=== PATIENT | female | born 1965 | race Caucasian/White ===

== ENCOUNTER 2019-04-04 11:29 | Outpatient (CLI) | payer OTHER, SELFPAY ==
--- NOTE | ~2019-04-04 | XR_ITS ---
XR lumbar spine 2-3V DATE: 04/04/2019 11:48 INDICATION: Chronic low back pain. No known injury. TECHNIQUE: AP, lateral, coned lateral lumbosacral views COMPARISON: 08/31/2014 lumbar spine FINDINGS: Diffuse osteopenia. No fracture or bone destruction is evident. The included lower thoracic and lumbar pedicles are intac t. Lumbar and lumbosacral spaces are well preserved. There is very slight degenerative spurring of L2 . Sacroiliac joints are normal. IMPRESSION: Diffuse osteopenia. Minimal degenerative change Reviewed, dictated and finalized at location B. ER SUPERVISOR
== END 2019-04-04 11:30 | disposition home or self-care (01) ==
PROVIDERS: PCP Family Medicine; Visit Provider Internal Medicine
DX: M06.09 Rheumatoid arthritis without rheumatoid factor, multiple sites (principal); M54.9 Dorsalgia, unspecified; F31.9 Bipolar disorder, unspecified
CPT/HCPCS: 72100

== ENCOUNTER 2022-04-23 13:37 | Outpatient (CLI) | payer OTHER, SELFPAY ==
--- NOTE | ~2022-04-23 | DEXA_ITS ---
Bone Density Report Name: CHRIS HORNER Age: 56 Sex: Female Ethnicity: White Date of : 1965 Indication: postmenopausal; screening for osteoporosis; hysterectomy; rheumatoid arthritis; Referring Provider: DEVORA, JULIÁN Alonzo Study: Bone densitometry was performed. Exam Date: April 23, 2022 Accession number: [id number] Bone Density: Region BMD T-score Z-score Classification AP Spine(L1-L4) 0.673 -3.4 -2.3 Osteoporosis Femoral Neck (Left) 0.611 -2.1 -1.1 Osteopenia Total Hip (Left) 0.717 -1.8 -1.2 Osteopenia Femoral Neck (Right) 0.597 -2.3 -1.2 Osteopenia Total Hip (Right) 0.740 -1.7 -1.0 Osteopenia Total Hip Mean 0.729 -1.8 -1.1 Osteopenia World Health Organization criteria for BMD impression classify patients as: Normal (T-score at or above -1.0), Osteopenia (T-score between -1.0 and -2.5), or Osteoporosis (T-score at or below -2.5). 10-year Fracture Risk: FRAX not reported because: Some T-score for Spine Total or Hip Total or Femoral Neck at or below -2.5 Treated for osteoporosis Clinical Information Provided by Patient: Has rheumatoid arthritis Is being treated for osteoporosis Has used the following medications: Prolia (i.e. denosumab), Vitamin D, Calcium Has the following medical conditions: Hysterectomy Patient maximum height was 67.5 Menopause Age: 41 Drinks caffeinated beverages Onset of menses at age 17 Number of children 2 Impression: The patient has osteoporosis, based on the Total Spine T-score. Discussion: It is important to ask patients whether they are taking their medications and to encourage continued and appropriate compliance with their osteoporosis therapies to reduce fracture risk. It is also important to review their risk factors and encourage appropriate calcium and vitamin D intakes, exercise, fall prevention and other lifestyle measures. Follow-Up: Consider a repeat BMD and Vertebral Fracture Assessment (VFA) exam in 2 years or sooner if medically necessary, to reassess this patient's status. Reported by: [facility] on 04/23/2022 2:18:00 PM. Reviewed, dictated and finalized at location AGerry AYALA
== END 2022-04-23 13:38 | disposition home or self-care (01) ==
PROVIDERS: PCP Family Medicine; Visit Provider Internal Medicine
DX: M81.0 Age-related osteoporosis without current pathological fracture (principal); M85.852 Other specified disorders of bone density and structure, left thigh; M85.851 Other specified disorders of bone density and structure, right thigh
CPT/HCPCS: 77080

== ENCOUNTER 2023-03-02 11:57 | Outpatient (CLI) | payer MEDICAID, SELFPAY ==
--- NOTE | ~2023-03-02 | MM_ITS ---
EXAMINATION: MM screening evelyn BI w luz HISTORY: Screening TECHNIQUE: Craniocaudal and mediolateral oblique 3-D tomosynthesis images were obtained and synthetic 2-D images were generated. CAD analysis was submitted and interpreted. COMPARISON: Comparison to multiple prior studies sequentially, with oldest reviewed study dated 09/08. BREAST PARENCHYMAL COMPOSITION: There are scattered areas of fibroglandular density. FINDINGS: There is no evidence of suspicious mass, calcification, or architectural distortion to sugg est malignancy in either breast. There has been no suspicious interval change. IMPRESSION: 1. No mammographic evidence of malignancy. 2. Recommend routine screening mammography in one year. BI-RADS Category 1: Negative Reviewed, dictated and finalized at location A. ORATE INTERN
== END 2023-03-02 11:58 | disposition home or self-care (01) ==
LOC: ANHIMG 12:02
PROVIDERS: PCP Family Medicine; Visit Provider Obstetrics & Gynecology
DX: Z12.31 Encounter for screening mammogram for malignant neoplasm of breast (principal)
CPT/HCPCS: 77063; 77067

== ENCOUNTER 2023-04-11 07:25 | Outpatient (CLI) | payer MEDICAID, SELFPAY ==
--- NOTE | ~2023-04-11 | MR_ITS ---
MRI of the right ankle Clinical history: Pain Technique: Coronal proton-density and proton-density fat-sat images, axial proton-density and proton- density fat-sat images, and sagittal proton-density and proton-density fat-sat images were acquired. Findings: There is high-grade tearing of the distal anteroinferior tibiofibular ligament. There is pr obable moderate grade partial tearing of the distal posterior inferior tibiofibular ligament. There i s high-grade tear of the anterior talofibular ligament. Posterior talofibular ligament and calcaneofi bular ligament appear intact. Deltoid ligament is intact. Medial flexor tendons, peroneus longus tendon, anterior extensor tendons, and Achilles tendon are int act. There is probable focal longitudinal split tear of the peroneus brevis tendon at the level of th e lateral malleolar tip. There is no osteochondral lesion of the talar dome. There is amorphous marrow edema of the posterior aspect of the distal tibia, with a vertically oriented nondisplaced posterior malleolus fracture pres ent (series 10 image 10). Small tibiotalar joint effusion present. Remaining bone marrow signals are unremarkable. Plantar fascia is intact. There is diffuse subcutaneous soft tissue edema about the ankle. Impression: Nondisplaced posterior malleolus fracture, as detailed above. High-grade tearing of the distal anterior inferior tibiofibular ligament and anterior talofibular lig ament. Moderate grade partial tearing of the distal posterior inferior tibiofibular ligament. Focal longitudinal split tear of the peroneus brevis tendon, as detailed above. Disuse subcutaneous soft tissue edema and small tibiotalar joint effusion. Reviewed, dictated and finalized at [facility]. [facility] DIRECT[facility] Impression: Nondisplaced posterior malleolus fracture, as detailed above. High-grade tearing of the distal anterior inferior tibiofibular ligament and an terior talofibular ligament. Moderate grade partial tearing of the distal poste rior inferior tibiofibular ligament. Focal longitudinal split tear of the peroneus brevis tendon, as detailed above. Disuse subcutaneous soft tissue edema and small tibiotalar joint effusion.
== END 2023-04-11 07:26 | disposition home or self-care (01) ==
LOC: CHSIMG 07:27
PROVIDERS: PCP Physician Assistant; Visit Provider Family Medicine
DX: M25.571 Pain in right ankle and joints of right foot (principal); S82.54XA Nondisplaced fracture of medial malleolus of right tibia, initial encounter for closed fracture; S93.431A Sprain of tibiofibular ligament of right ankle, initial encounter; M25.471 Effusion, right ankle
CPT/HCPCS: 73721

== ENCOUNTER 2024-05-18 15:03 | Outpatient (CLI) | payer OTHER, SELFPAY ==
--- NOTE | ~2024-05-18 | MM_ITS ---
EXAMINATION: MM screening evelyn BI w luz HISTORY: Screening TECHNIQUE: Craniocaudal and mediolateral oblique 3-D tomosynthesis images were obtained and synthetic 2-D images were generated. CAD analysis was submitted and interpreted. COMPARISON: Comparison to multiple prior studies sequentially, with oldest reviewed study dated 12/17. BREAST PARENCHYMAL COMPOSITION: Not dense: There are scattered areas of fibroglandular density. FINDINGS: There is no evidence of suspicious mass, calcification, or architectural distortion to sugg est malignancy in either breast. There has been no suspicious interval change. IMPRESSION: 1. No mammographic evidence of malignancy. 2. Recommend routine screening mammography in one year. BI-RADS Category 1: Negative Reviewed, dictated and finalized at location A.
--- OUTSIDE RECORDS SUMMARY | 2024-05-18 16:25 | XMS_ITS | Clinical Summary ---
Author Organization [facility] Address [address] [place] [place] [address] Care Team Providers Care Hat Finishing Materials Preparer Name Role Phone Jax Edgar MD Primary Care Provider Source Comments [facility],non-owned Affiliates and Associated Physician Practices is amultiple site organization consisting of ambulatory clinics and hospital sitesin [place], [place], [place] and [place]. This disclosure is being madepursuant to the Care Everywhere program and may not contain all information available regarding this patient. Last updated 17.[facility] Allergies Active Allergy Reactions Criticality Noted Date Comments Etanercept Swelling High 01/11/2018 Occurred 4 days after first enbrel dose. Occurred 4 days after first enbrel dose. Occurred 4 days after first enbrel dose. Lamotrigine Unknown 03/09/2018 [place] Anaphylaxis High 11/11/2016 Nitrofurantoin Rash Medium 03/09/2018 Penicillins Itching,Rash Medium 11/11/2016 Valproic Acid Anaphylaxis High 03/09/2018 Medications * Be aware that medications may not be up to date on this document. Alwaysverify current medications with the patient. Medication Sig Dispensed Refills Start Date End Date Status PROAIR HFA 108 (90 Base) MCG/ACT inhaler 10/10/2019 Active celecoxib (CELEBREX) 200 MG capsule 09/29/2019 Active folic acid (FOLVITE) 1 MG tablet Take 1 mg by mouth once daily 10/22/2017 Active gabapentin (NEURONTIN) 300 MG capsule Take 2 capsules by mouth once daily Active methotrexate 2.5 MG tablet Take 20 mg by mouth every 7 days 11/30/2017 Active metoprolol succinate XL 24hr (TOPROL XL) 100 MG tablet Take 1 tablet by mouth once daily 10/12/2017 Active OXcarbazepine (TRILEPTAL) 600 MG tablet Take 1/2 tablet in the morning and 2 at bedtime. 08/21/2017 Active sertraline (ZOLOFT) 100 MG tablet Take 1 tablet by mouth once daily 02/15/2018 Active sertraline (ZOLOFT) 50 MG tablet Take 1 tablet by mouth once daily 10/07/2017 Active traMADol (ULTRAM) 50 MG tablet Take 50 mg by mouth 01/27/2018 Activ e cephalexin (KEFLEX) 500 MG capsule 06/28/2020 Active doxycycline hyclate (VIBRAMYCIN) 100 MG capsule 07/04/2020 Active est estrogens-methyltest (ESTRATEST) 1.25-2.5 MG tablet 08/22/2020 Active fluticasone propionate (FLONASE) 50 MCG/ACT nasal spray 08/27/2020 Active leflunomide (ARAVA) 10 MG tablet 08/05/2020 Active golimumab (SIMPONI ARIA) 50 MG/4ML injection 2 mg/kg by Intravenous route once Active morphine IR (MSIR) 15 MG tablet Take 15 mg by mouth 2 times daily as needed Active Multiple Vitamins-Minerals (CENTRUM SILVER) TABS Take 1 tablet by mouth once daily Active predniSONE (DELTASONE) 2.5 MG tablet 12/19/2019 Active Active Problems Problem Noted Date Diagnosed Date RA (rheumatoid arthritis) 06/30/2022 Psoriatic arthritis 06/30/2022 Osteoporosis 04/30/2022 Senile osteoporosis 06/23/2019 Social History Tobacco Use Types Packs/Day Years Used Date Smoking Tobacco: Former Cigarettes 0.5 26.7 S tarted: 08/28/1997 Smokeless Tobacco: Never Alcohol Use Standard Drinks/Week Comments Never 0 (1 standard drink = 0.6 oz pur e alcohol) PHQ-2 Answer Date Recorded PHQ2 TOTAL SCORE 0 08/28/2020 Sex and Gender Information Value Date Recorded Sex Assigned at Not on file Gender Identity Not on file Sexual Orientation Not on file Last Filed Vital Signs Vital Sign Reading Time Taken Comments Blood Pressure 146/88 06/30/2022 12:46 PM CDT Pulse 65 06/30/2022 12:46 PM CDT Temperature 36.8 C (98.2 F) 06/30/2022 12:46 PM CDT Respiratory Rate 18 06/30/2022 12:46 PM CDT Oxygen Saturation 97% 06/30/2022 12:46 PM CDT Inhaled Oxygen Concentration - - Weight - - Height - - Body Mass Index - - Plan of Treatment Health Maintenance Due Date Last Done Comments COLOGUARD (AGES 45-75) - COLON CA SCREENING 1965 COLON MONITORING 1965 COLONOSCOPY - COLON CA SCREENING 1967 CT COLONOGRAPHY - COLON CA SCREENING 1965 Colorectal Cancer Screening 1965 FIT - COLON CA SCREENING 1965 FLEX SIG - COLON CA SCREENING 1965 LIPID TESTING 1965 MAMMOGRAM 1965 PAP SMEAR 1965 HIV SCREENING 07/13/1982 DTAP/TDAP/TD VACCINES (1 - Tdap) 07/13/1986 HEPATITIS B VACCINE (1 of 3 - 19+ 3-dose series) 07/13/1986 PNEUMOCOCCAL VACCINE 50+ (1 of 1 - PCV) 07/13/2017 ZOSTER VACCINE (1 of 2) 07/13/2017 COVID-19 VACCINE (1 - season) 2023 INFLUENZA VACCINE (#1) 2023 DEPRESSION SCREENING 02/17/2024 HEPATITIS C SCREENING Completed 07/30/2020 , 07/30/2020, 07/30/2020, Additional history exists HIB VACCINE Aged Out No longer eligi ble based on patient's age to complete this topic HPV VACCINE Aged Out No longer eligi ble based on patient's age to complete this topic MENINGOCOCCAL (Group B) VACCINE SHARED DECISION-MAKING Aged Out No longer eligible based on patient's age to complete this topic MENINGOCOCCAL GROUPS A/C/Y/W VACCINE Aged Out No longer eligible based on patient's age to complete this topic PNEUMOCOCCAL VACCINE Aged Out No long er eligible based on patient's age to complete this topic Care Teams Hat Finishing Materials Preparer Relationship Specialty Start Date End Date Jax Edgar MD [address] [place] [phone] PCP - General Family Medicine 11/11/16
--- OUTSIDE RECORDS SUMMARY | 2024-05-18 16:25 | XMS_ITS ---
Author Organization Unknown Address [address] [place] [phone] Phone Care Team Providers Care Motorcycle Repairer Name Role Phone CORI KOHLERSSEF Attending Unavailable VEL Morris Primary Unavailable Immunization Immunization Date Status Additional Notes Code Code System Influenza, split virus, quadrivalent, PF 12/02/2019 Completed 150 CVX Influenza, split virus, quadrivalent, PF 11/27/2020 Completed 150 CVX Influenza, split virus, quadrivalent, PF 12/03/2021 Completed 150 CVX Influenza, split virus, quadrivalent, preservative 11/17/2017 Completed 158 C VX Influenza, split virus, quadrivalent, preservative 11/23/2018 Completed 158 C VX Influenza, split virus, quadrivalent, preservative 01/26/2023 Completed 158 C VX COVID-19, mRNA, LNP-S, PF, 3 0 mcg/0.3 mL dose 04/06/2020 Completed 208 CVX COVID-19, mRNA, LNP-S, PF, 3 0 mcg/0.3 mL dose 04/27/2020 Completed 208 CVX COVID-19, mRNA, LNP-S, PF, 3 0 mcg/0.3 mL dose 10/08/2020 Completed 208 CVX COVID-19, mRNA, LNP-S, bivalent, PF, 30 mcg/0.3 mL dose 01/14/2022 Completed 300 CVX Results ANKLE 3V RIGHT - Completed: 06/17/2023 10:31 LOINC: EXAM DESCRIPTION: ? ? ANKLE 3V RIGHT REASON FOR STUDY: follow up fracture Duration: 3 months FINDINGS: Three views submitted without comparison. There is periosteal new bone formation involving the posterior distal tibia. Plantar heel spur and Achilles enthesophyte are present. The ankle joint space and mortise appear normal. Heterotopic ossification beneath the fibula is noted. There is soft tissue swelling about the ankle. There is mild midfoot osteoarthritis. IMPRESSION: ? ? Periosteal new bone formation involving the posterior distal tibia, which may represent a healing nondisplaced fracture. This can be further evaluated with CT if clinically indicated ? ? Right ankle soft tissue swelling. THIS IS AN ELECTRONICALLY VERIFIED FINAL REPORT 06/18/2023 3:18 PM - Electronically signed by Jac Stafford M.D. MF: [id number] Report ID: [id number] Reading Location: [id number] Social History Type Status Start Date End Date Code Code Syst em Sex Female Hospital Discharge Instructions Should you have any questions prior to discharge, please contact a member of your healthcare team. If you have left the hospital and have any questions, please contact your primary care physician. Reason For Referral No Data Found Plan of Treatment No Data Found Encounters Encounter Diagnosis Start Date Code Code Sys tem Disorder of soft tissue 06/17/2023 [id number] [facility] ED-CT Personal Care Team Section Performer Name Performer Role Active Date Inactive SEPIDEH Laguna PCP - Primary care physician 2023-04-15 Imaging Narrative Notes
--- OUTSIDE RECORDS SUMMARY | 2024-05-18 16:25 | XMS_ITS | Clinical Summary ---
Author Organization [place] [id number] [facility] Address [address] [place] [id number] Phone Care Team Providers Care Openstack Developer Name Role Phone Jax Edgar MD Primary Care Provider [phone] Ethan CLEARY MD, Silvestre Bauer Unavailable [phone] Fredy Dsouza MD Unavailable [phone] Allergies Active Allergy Reactions Criticality Noted Date Comments Etanercept Swollen tongue High 01/11/2018 Occurred 4 days after first enbrel dose. Lamotrigine [place] Anaphylaxis High 11/11/2016 Penicillin G Rash Medium 11/11/2016 Penicillins Medications OXcarbazepine (TRILEPTAL) 600 mg tablet Take 600 mg by mouth 2 (two) times a day. Active sertraline (ZOLOFT) 50 mg tablet Take 100 mg by mouth daily. Active folic acid (FOLVITE) 1 mg tablet Take 1 tablet (1 mg total) by mouth daily 90 tablet 3 05/24/2018 Active buPROPion (WELLBUTRIN) 100 mg tablet 07/21/2018 Activ e gabapentin (NEURONTIN) 800 mg tabletIndicatio ns:Neuropathic Pain Take 1 tablet (800 mg total) by mouth 3 (three) times a day 270 tablet 1 09/14/2018 Active methotrexate 2.5 mg tabletIndicatio ns:Rheumatoid Arthritis Take 8 tablets (20 mg total) by mouth every 7 days 96 tablet 1 09/14/2018 Active traMADol (ULTRAM) 50 mg tablet Take 1 tablet (50 mg total) by mouth every 8 (eight) hours as needed for pain 90 tablet 10/21/2018 Active XELJANZ XR 11 mg TAKE ONE TABLET BY MOUTH ONCE DAILY. MAY BE TAKEN WITH OR WITHOUT FOOD. SWALLOW TABLET WHOLE. DO NOT CRUSH, SPLIT OR CHEW. STORE AT ROOM TEM 30 tablet 2 12/28/2018 Active Active Problems Problem Noted Date Diagnosed Date Chronic pain of both knees 07/26/2018 Assessment & Plan (09/14/2018 12:01 PM CDT): Mild patellofemoral djd on xrays. Doing PT with improvement Assessment & Plan (07/26/2018 1:05 PM CDT): Pt reporting severe knee pain but no effusions or significant tenderness on exam. Will xray Sjogren's syndrome 07/26/2018 Assessment & Plan (09/14/2018 12:04 PM CDT): Pt reporting dry eyes, dry mouth. Can no longer wear contacts. Uses lubricating drops. F/u with eye doctor. Also having more dental issues, using mouth spray and seeing dentist. Neg serologies in 2017 but suspect this may be secondary sjogren's. Neg serologies in 08/04. Discussed trial of pilocarpine 5mg TID prn but she did not take it yet. Assessment & Plan (07/26/2018 1:06 PM CDT): Pt reporting dry eyes, dry mouth today. Can no longer wear contacts. Uses lubricating drops. F/u with eye doctor. Also having more dental issues, using mouth spray and seeing dentist. Neg serologies in 2017 but suspect this may be secondary sjogren's. Will recheck serologies today. Trial of pilocarpine 5mg TID prn. Dermatitis 05/24/2018 Assessment & Plan (05/24/2018 9:54 PM CDT): Flaking in skin and redness on face. Suspicious for psoriasis. Recommend derm opinion. She could have psoriatic arthritis Pain in the coccyx 03/15/2018 Assessment & Plan (03/15/2018 11:23 AM SIGNALER): Pt had a fall 2 weeks ago and still c/o tailbone pain. Will xray though discussed usually no tx is needed. Paresthesias 01/11/2018 Assessment & Plan (01/11/2018 12:21 PM SIGNALER): Paresthesias to R hand intermittently. Positive tinel's on exam. Suspect she may have mild CTS. If not improving with more RA tx then will send for nerve studies. Skin lump of arm, right 12/15/2017 Assessment & Plan (03/15/2018 11:26 AM SIGNALER): Pt has likely lipoma on R arm. Having excision on mar 24. She is just starting to feel better on humira and mtx and is nervous about stopping meds for minor procedure. Will have her take this week's dose of mtx, hold humira from now until after surgery. She has a post op visit 1 week after surgery. If all clear at that date, she may resume both meds. Assessment & Plan (12/15/2017 10:05 AM CDT): 1cm lump developed on the posterior lateral right shoulder. Mobile and tender some. Suspicious for lipoma. Patient has scheduled an appointment with general surgeon for further evaluation. Tongue swelling 12/14/2017 Assessment & Plan (12/15/2017 12:16 PM CDT): Major complaint today. Tongue swelling, which began last Thursday. Had first enbrel injection last Thursday. Patient also notes that she started a new coffee, which she did have 2 cups of on Thursday. Symptoms have gradually improved. Denies any difficulty swallowing or breathing issues. Does possess tongue swelling. For this reason, will have patient proceed with prednisone taper medication prescribed per PCP. Advised to go to the ER if symptoms worsen or develops difficulty with breathing. Will have patient stop enbrel at this time. Discuss alternative options at FU in 3 weeks. Neck pain 08/03/2017 Assessment & Plan (01/11/2018 11:47 AM SIGNALER): early degenerative change in the neck and also degenerative discs at multiple levels in the thoracic spine. Assessment & Plan (11/23/2017 4:41 PM CDT): Completed PT Assessment & Plan (10/23/2017 4:17 PM CDT): early degenerative change in the neck and also degenerative discs at multiple levels in the thoracic spine. Improving but not resolved. Doing additional PT Assessment & Plan (09/17/2017 5:18 PM CDT): early degenerative change in the neck and also degenerative discs at multiple levels in the thoracic spine. Improving but not resolved. Would benefit from additional PT visits Assessment & Plan (08/03/2017 11:33 AM CDT): Will xray and send for PT Acute right-sided thoracic back pain 08/03/2017 Assessment & Plan (11/23/2017 1:11 PM CDT): Continuing with PT Assessment & Plan (10/23/2017 4:17 PM CDT): Continuing with PT Assessment & Plan (09/17/2017 5:18 PM CDT): xrays showed early degenerative change in the neck and also degenerative discs at multiple levels in the thoracic spine. Has done PT and is better but not resolved. Will send for additional visits Assessment & Plan (08/03/2017 11:33 AM CDT): Will xray and send to PT Rheumatoid arthritis without elevated rheumatoid factor 11/25/2016 Overview (09/14/2018): Images from the original note were not included. vectra 37 08/03 R hand u/s 08/03 showed moderate inflammation with doppler but some improvement since previous study R hand 08/04: Neg AVISE 08/04 Started xeljanz early August Reaction to Enbrel, inadequate response to Humira Assessment & Plan (09/14/2018 12:01 PM CDT): Images from the original note were not included. cdai = 11, low-moderate On 20mg mtx weekly. Had tongue swelling 4 days after taking her first dose of Enbrel. Inadequate response to Humira. Recently changed to Xeljanz and has almost completed the first month. She feels some joint improvement and her cdai is better. May improve more over the next couple of months. R hand u/s in 08/03 shows moderate inflammation with doppler but some improvement since the previous study. vectra was 37 in 08/03 R hand u/s in 08/04: She also has flaking throughout her scalp that is suspicious for psoriasis. Recommend derm opinion. Labs today. F/u 6 weeks Assessment & Plan (07/26/2018 1:09 PM CDT): High cdai On 20mg mtx weekly. Had tongue swelling 4 days after taking her first dose of Enbrel. Has also been on weekly humira (changed from [id number]) since the last visit and does not report any improvement. R hand u/s in 08/03 shows moderate inflammation with doppler but some improvement since the previous study. vectra was 37 in 08/03 She also has flaking throughout her scalp that is suspicious for psoriasis. Recommend derm opinion. She also did not report much different with last IM steroid shot. Will repeat R hand u/s to assess disease activity. Will check benefits for xeljanz as she does not appear to be controlled on Humira. Also discussed Orencia. F/u 4-6 weeks. Assessment & Plan (05/24/2018 9:56 PM CDT): High cdai On 20mg mtx weekly. Had tongue swelling 4 days after taking her first dose of Enbrel. Tolerating Humira. R hand u/s in 08/03 shows moderate inflammation with doppler but some improvement since the previous study. vectra was 37 in 08/03 She recently had to hold her meds for lipoma excision and also had colonoscopy (following eating a non-gluten free diet). Her joints have been worse since then, despite restarting meds. She feels that Humira helps for about a week to 10 days then starts to wear off. She reports she had possible erosions and/or inflammation on her scopes and is seeing GI soon in f/u; there is a question about crohn's disease and gluten allergy. Due to increase in joint symptoms and Humira wearing off early will see if insurance will allow weekly humira. She also has flaking throughout her scalp that is suspicious for psoriasis. Recommend derm opinion. Due to burden of disease will give 100mg triamcinolone IM today. F/u 2 months. I gave her one extra sample of Humira to try to take the next couple of doses 1 week apart. Assessment & Plan (03/15/2018 11:28 AM SIGNALER): Moderate cdai. On 20mg mtx weekly. Had tongue swelling 4 days after taking her first dose of Enbrel. We have now switched to Humira and she has taken 3 doses without any major issues. R hand u/s in 08/03 shows moderate inflammation with doppler but some improvement since the previous study. vectra was 37 in 08/03 Will have a short interruption in meds due to lipoma excision (see below), but hopefully will see continued improvement with humira and mtx over the next several months. Labs today. F/u 2 months. Assessment & Plan (01/11/2018 12:20 PM SIGNALER): High cdai. On 20mg mtx weekly. Had tongue swelling 4 days after taking her first dose of Enbrel. Stopped med at that time and took a short prednisone taper. R hand u/s in 08/03 shows moderate inflammation with doppler but some improvement since the previous study. vectra was 37 in 08/03 Continues to have notable swelling and tenderness on exam today. Primary joint complaints today involve the hands/wrist, as well as the knees with morning stiffness for about an hour. Does not appear adequately controlled at this time. Will try to get approval for simponi or humira. Recommend teaching visit once she receives medicine to monitor for reactions. Labs next. F/u 6 weeks Assessment & Plan (12/15/2017 12:15 PM CDT): High CDAI. On 20mg mtx weekly. Received first Enbrel injection last Thursday. R hand u/s in 08/03 shows moderate inflammation with doppler but some improvement since the previous study. vectra was 37 in 08/03 Continues to have notable swelling and tenderness on exam today. Primary joint complaints today involve the hands/wrist, as well as the knees with morning stiffness for about an hour. Does not appear adequately controlled at this time. Had first enbrel injection last Thursday. As below, subsequent tongue swelling on Thursday. Difficult to say if this was due to the Enbrel. Patient also drank a new coffee on Thursday. Nonetheless, will stop Enbrel at this time. Fu 3 weeks. Sooner if needed. Discuss alternative treatment options at that time. Continue MTX. Assessment & Plan (11/23/2017 4:41 PM CDT): cdai = 21 On 20mg mtx weekly. Steroid shot given last visit was minimally helpful, though pt also came down with illness and had a major family stressor shortly thereafter. R hand u/s in 08/03 shows moderate inflammation with doppler but some improvement since the previous study. vectra was 37 in 08/03 Today she still reports having significant joint pain and difficulty doing her usual activities. Synovitis on exam so I suspect this is still due to her RA although we also discussed that fibromyalgia, OA may play a part in her symptoms as well. Discussed adding a biologic such as enbrel or humira and reviewed risks and benefits. Pt willing to try. Will check benefits for enbrel. Check quantiferon with labs. Will try another triamcinolone shot today. F/u 4-6 weeks. Assessment & Plan (10/23/2017 4:17 PM CDT): cdai = 39 On 20mg mtx weekly. She appears to be having a flare today. R hand u/s in 08/03 shows moderate inflammation with doppler but some improvement since the previous study. vectra was 37 in 08/03 Will give 100mg triamcinolone IM today to help with flare, check labs, and f/u 1 month. Consider adding more meds if not improving. Also discussed pain may be a component of fibromyalgia also. Assessment & Plan (09/17/2017 2:31 PM CDT): cdai = 9 Last visit increased to 20mg mtx weekly. R hand u/s shows moderate inflammation with doppler but some improvement since the previous study. vectra was 37 in 08/03 She is feeling better so will continue current regimen and monitor. Labs today. F/u 3 months Assessment & Plan (08/03/2017 12:28 PM CDT): More tender joints on exam today and synovitis present as well. On 15mg mtx weekly. Will increase to 20mg weekly. Will check u/s of R hand and vectra to help assess disease activity. F/u 1 month Assessment & Plan (05/06/2017 12:22 PM CDT): cdai is 13 but this may be elevated with fibromyalgia. Overall clinically is looking well so will check US to verify this impression after next visit. Assessment & Plan (02/04/2017 3:07 PM SIGNALER): Low disease activity with mtx 15mg weekly. Will con't with current regimen. Labs today. F/u 3 mos, sooner if needed. Assessment & Plan (12/31/2016 2:51 PM SIGNALER): High disease activity with mtx 10mg weekly. Increase to 15mg weekly. Labs today. Due to burden of disease, will administer 100mg IM triamcinolone today. Informed of se of dm2, htn, osteoporosis, avn. She would like to proceed with injection. F/u 1 month, sooner if needed. Pt in tears on exam. She is asking about pain medicines. Informed we can give her tramadol to take, but otherwise, other pain meds would have to be prescribed through pcp or pain mgmt. She would like to try tramadol, so will give 50mg tid prn pain. Assessment & Plan (11/25/2016 2:45 PM CDT): Inflamatory arthitis consistent with seronegative ra. Will start on mtx at this time. Discussed monitoring at this time. Pt having much pain so due to burden of disease will adminsiter triamcinolone 100 Im. Long-term use of high-risk medication 11/25/2016 Overview (07/26/2018): Hepatitis neg 11/02 Quant neg 12/03 cxr 06/04 (mild atelectasis in the lingula) Assessment & Plan (09/14/2018 12:03 PM CDT): Hepatitis neg 9/17 Quant neg 10/18 cxr 4/19 (mild atelectasis in the lingula) Assessment & Plan (07/26/2018 1:05 PM CDT): Hepatitis neg 9/17 Quant neg 10/18 cxr 4/19 (mild atelectasis in the lingula) Assessment & Plan (05/24/2018 11:10 AM CDT): Hepatitis neg 9/17 Quant neg 10/18 cxr neg 9/17. Assessment & Plan (03/15/2018 9:33 AM SIGNALER): Hepatitis neg 9/17 Quant neg 10/18 cxr neg 9/17. Assessment & Plan (01/11/2018 11:24 AM SIGNALER): Hepatitis neg 9/17 Quant neg 10/18 cxr neg 9/17. Assessment & Plan (12/15/2017 9:59 AM CDT): Hepatitis neg 9/17 Quant neg 10/18 cxr neg 9/17. Assessment & Plan (11/23/2017 1:11 PM CDT): Hepatitis neg 9/17 cxr neg 9/17. Assessment & Plan (10/23/2017 4:18 PM CDT): Hepatitis neg 9/17 cxr neg 9/17. Assessment & Plan (09/17/2017 2:19 PM CDT): Hepatitis neg 9/17 cxr neg 9/17. Assessment & Plan (08/03/2017 11:14 AM CDT): Hepatitis neg 9/17 cxr neg 9/17. Assessment & Plan (02/04/2017 1:00 PM SIGNALER): Hepatitis neg 9/17 cxr neg 9/17. Assessment & Plan (12/31/2016 1:49 PM SIGNALER): Hepatitis neg 11/02 cxr neg 11/02. Arthralgia 11/11/2016 Assessment & Plan (11/11/2016 1:40 PM CDT): Joint tenderness with questionable synovitis. Will check serologies, xrays and hand/wrist u/s to look for synovitis. Pt seen with Dr. Link. F/u 2 weeks, sooner if needed. Fatigue 11/11/2016 Assessment & Plan (11/11/2016 1:40 PM CDT): Will check hepatitis panel. Fibromyalgia 11/11/2016 Assessment & Plan (09/14/2018 12:03 PM CDT): On gabapentin 600mg TID. Has some improvement but will increase to 800mg TID. May also try taking 1 pill in the AM and 2 pills at night to see if it helps with fatigue. Discussed trying to have consistent sleep schedule and try for at least 8 hrs in bed. Her does shift work and they both have varying sleep schedules as a result. Discussed this predisposes people to sleep disorders/inadequate sleep and fatigue. May still use tramadol TID prn. Can also add tylenol with it. Assessment & Plan (07/26/2018 1:04 PM CDT): On gabapentin 400mg TID. Since she is reporting widespread joint pains that did not improve with last steroid shot I am wondering if more of her pain is related to fibromyalgia. Will increase gabapentin to 600mg TID. May still use tramadol TID prn. Can also add tylenol with it. Assessment & Plan (05/24/2018 9:55 PM CDT): On gabapentin 400mg TID. Stable at this time. Assessment & Plan (03/15/2018 9:33 AM SIGNALER): On gabapentin 400mg TID. Stable at this time. Assessment & Plan (01/11/2018 12:22 PM SIGNALER): On gabapentin 400mg TID. Stable at this time. Assessment & Plan (12/15/2017 9:59 AM CDT): On gabapentin 400mg TID. Stable at this time. Assessment & Plan (11/23/2017 1:10 PM CDT): On gabapentin 400mg TID Assessment & Plan (10/23/2017 4:17 PM CDT): On gabapentin 400mg TID Assessment & Plan (09/17/2017 2:16 PM CDT): Tried reducing gabapentin but was worse so is back on 300mg TID. Continue to exercise regularly Assessment & Plan (08/03/2017 11:32 AM CDT): Tried reducing gabapentin but was worse so is back on 300mg TID. Continue to exercise regularly Assessment & Plan (05/06/2017 12:47 PM CDT): Doing well so suggested she might try to decrease her gabapentin by 1 tab daily for a week until off. If worse then resume. Assessment & Plan (02/04/2017 3:10 PM SIGNALER): con't with current regimen for now. Assessment & Plan (12/31/2016 2:48 PM SIGNALER): Clincially evident. Cont lyrica for now. F/u 1month. Recommend talking to her psychiatrist about starting cymbalta or savella for more pain relief. Assessment & Plan (11/25/2016 2:48 PM CDT): Clincially evident. Cont lyrica for now. F/u 1month. Assessment & Plan (11/11/2016 1:42 PM CDT): Previously diagnosed and on Lyrica 300mg bid. Off cymbalta due to se of making her bipolar worse. Recommend doing Tristin Chi to help with sx's. Diarrhea 11/13/2011 Hematochezia 11/06/2011 Social History Tobacco Use Types Packs/Day Years Used Date Smoking Tobacco: Every Day Smokeless Tobacco: Never Alcohol Use Standard Drinks/Week Comments No 0 (1 standard drink = 0.6 oz pur e alcohol) Personal Safety Answer Date Recorded Getting School Help Needed Not on file 05/01 Comments Unknown Sex and Gender Information Value Date Recorded Sex Assigned at Not on file Legal Sex Female 7:51 AM SIGNALER Gender Identity Not on file Sexual Orientation Not on file Obstetrics History Last Filed Vital Signs Vital Sign Reading Time Taken Comments Blood Pressure 126/80 09/14/2018 10:49 AM CDT Pulse 80 09/14/2018 10:49 AM CDT Temperature - - Respiratory Rate - - Oxygen Saturation - - Inhaled Oxygen Concentration - - Weight 64.9 kg (143 lb) 09/14/2018 10:49 AM CDT Height 170.2 cm (5' 7 ) 05/24/2018 10:36 AM CDT Body Mass Index 22.4 05/24/2018 10:36 AM CDT Plan of Treatment Not on file Insurance [facility] H[facility]/PPO Address: [facility] [address] [place] [address] Care Teams Openstack Developer Relationship Specialty Start Date End Date Jax Edgar MD [address] [place] [id number] PCP - General Family Medicine 11/05/16 Silvestre Long III, MD [address] [facility] [address] [place] [address] Rheumatology 02/04/17 Fredy Dsouza MD [address] [place] [address] [place] [address] Referring Physician Family Medicine 05/24/18
--- OUTSIDE RECORDS SUMMARY | 2024-05-18 16:25 | XMS_ITS ---
Author Organization [facility] Address [address] [place] [address] Phone Care Team Providers Care Performance Architect Name Role Phone Unavailable Unavailable Unavailable Plan of Treatment No Plan of Treatment Recorded Assessments Includes: Assessments for all patient encounters No Assessments Recorded Medical Equipment - Implanted Devices Includes: Current and historical Devices No Medical Equipment Recorded Medications Administered Includes: Administered Medications in patient's chart No Administered Medications Recorded Results Includes: Results from 05/19/2023 through 05/18/2024 No Results Recorded For Specified Dates History of Present Illness History of Present Illness not supported for this document type No History of Present Illness Recorded Social History No Social History Recorded - Smoking Status Unknown Medical History Includes: Medical History in patient's chart No Medical History Recorded Family History Includes: Family History in patient's chart No Family History Recorded Review of Systems Review of Systems not supported for this document type No Review of Systems Recorded Mental Status No Mental Status Recorded Functional Status No Functional Status Recorded Physical Exam Physical Exam not supported for this document type No Physical Exam Recorded Clinical Notes Includes: Signed Clinical Notes starting from 03/07/2022 No Clinical Notes Recorded
--- OUTSIDE RECORDS SUMMARY | 2024-05-18 16:25 | XMS_ITS | Referral Summary ---
Author Organization [id number] Address [address] [place] [id number] Phone Care Team Providers Care Director Of Integrated Marketing Name Role Phone Jax Edgar MD Primary Care Provider [phone] Ethan CLEARY MD, Silvestre Bauer Unavailable [phone] Fredy Dsouza MD Unavailable [phone] Allergies Active Allergy Reactions Criticality Noted Date Comments Etanercept Swollen tongue High 01/11/2018 Occurred 4 days after first enbrel dose. Lamotrigine [place] Anaphylaxis High 11/11/2016 Penicillin G Rash Medium [...] 03/15/2018 Assessment & Plan (03/15/2018 11:23 AM WRAPPING MACHINE OPERATOR): Pt had a fall 2 weeks ago and still c/o tailbone pain. Will xray though discussed usually no tx is needed. Paresthesias 01/11/2018 Assessment & Plan (01/11/2018 12:21 PM WRAPPING MACHINE OPERATOR): Paresthesias to R hand intermittently. Positive tinel's on exam. Suspect she may have mild CTS. If not improving with more RA tx then will send for nerve studies. Skin lump of arm, right 12/15/2017 Assessment & Plan (03/15/2018 11:26 AM WRAPPING MACHINE OPERATOR): Pt has likely lipoma on R arm. [...] 08/03/2017 Assessment & Plan (01/11/2018 11:47 AM WRAPPING MACHINE OPERATOR): early degenerative change in the neck and [...] also been on weekly humira (changed from r0efuue) since the last visit and does not [...] apart. Assessment & Plan (03/15/2018 11:28 AM WRAPPING MACHINE OPERATOR): Moderate cdai. On 20mg mtx weekly. Had [...] months. Assessment & Plan (01/11/2018 12:20 PM WRAPPING MACHINE OPERATOR): High cdai. On 20mg mtx weekly. Had [...] visit. Assessment & Plan (02/04/2017 3:07 PM WRAPPING MACHINE OPERATOR): Low disease activity with mtx 15mg weekly. Will con't with current regimen. Labs today. F/u 3 mos, sooner if needed. Assessment & Plan (12/31/2016 2:51 PM WRAPPING MACHINE OPERATOR): High disease activity with mtx 10mg weekly. [...] 9/17. Assessment & Plan (03/15/2018 9:33 AM WRAPPING MACHINE OPERATOR): Hepatitis neg 9/17 Quant neg 10/18 cxr neg 9/17. Assessment & Plan (01/11/2018 11:24 AM WRAPPING MACHINE OPERATOR): Hepatitis neg 9/17 Quant neg 10/18 cxr [...] 9/17. Assessment & Plan (02/04/2017 1:00 PM WRAPPING MACHINE OPERATOR): Hepatitis neg 9/17 cxr neg 9/17. Assessment & Plan (12/31/2016 1:49 PM WRAPPING MACHINE OPERATOR): Hepatitis neg 11/02 cxr neg 11/02. Arthralgia [...] time. Assessment & Plan (03/15/2018 9:33 AM WRAPPING MACHINE OPERATOR): On gabapentin 400mg TID. Stable at this time. Assessment & Plan (01/11/2018 12:22 PM WRAPPING MACHINE OPERATOR): On gabapentin 400mg TID. Stable at this [...] resume. Assessment & Plan (02/04/2017 3:10 PM WRAPPING MACHINE OPERATOR): con't with current regimen for now. Assessment & Plan (12/31/2016 2:48 PM WRAPPING MACHINE OPERATOR): Clincially evident. Cont lyrica for now. F/u [...] on file Legal Sex Female 7:51 AM WRAPPING MACHINE OPERATOR Gender Identity Not on file Sexual Orientation [...] Plan of Treatment Not on file Insurance [facility] P[facility] Care Teams Director Of Integrated Marketing Relationship Specialty Start Date End Date Jax Edgar MD [address] [place] [id number] PCP - General Family Medicine 11/05/16 Silvestre Long III, MD [address] [address] Rheumatology 02/04/17 Fredy Dsouza MD [address] [place] [address] Referring Physician Family Medicine 05/24/18
--- OUTSIDE RECORDS SUMMARY | 2024-05-18 16:25 | XMS_ITS | Data Portability ---
Author Organization [facility], [address] [place] [address] ([place]) Address [address] [place] [address] Care Team Providers Care Endoscopy Registered Nurse Name Role Phone SEPIDEH CROWDER Primary Care Provider [phone] SEPIDEH CROWDER Referring Provider [phone] Assessment Encounter Date Assessment Date Assessment LastModified by Organization Details LastModified Time 07/30/2023 07/30/2023 IMPRESSION: Osteoarthritis of the knees. PLAN: 1. Bilateral knee arthrocentesis and intraarticular Euflexxa injection #2 today. The indications, risks, benefits and potential side effects of this knee injection procedure are discussed with the patient today in detail and informed, signed consent is obtained to proceed. With the patient lying in the supine position on the exam table and draped, landmarks are identified over the anterior superior lateral aspect of the knees and the injection sites are marked. The injection sites are cleaned with Betadine and while maintaining sterile technique, ethyl chloride spray is used to anesthetize the skin over both knees while in each instance, a sterile 25-gauge needle attached to a syringe containing 2 mL of 1% lidocaine is used to anesthetize a pathway from the skin to the intraarticular joint space. This needle is then withdrawn and while maintaining sterile technique, for each knee a sterile 18-gauge needle attached to a 30 mL syringe is introduced into the intra-articular joint space and aspiration performed. There was no aspirate obtained from either knee during these procedures today. While maintaining the position of the 18-gauge needle using a sterile pair of hemostats, the 30 mL syringe is unscrewed and the syringe containing the 2mL of Euflexxa is attached to the 18-gauge needle and the contents injected into the intraarticular space. Subsequently, the needle is withdrawn and the injection site areas are cleaned and covered with a sterile bandage. The patient tolerated the procedure well without bleeding or complications and is discharged home in stable condition. I performed this procedure today myself with the assistance of my nursing staff. Please see nursing notes regarding lot number and expiration date for today s Euflexxa doses. 2. Followup visit in 2 weeks for bilateral knee Euflexxa injection #3 and a brief followup visit to discuss her Actemra therapy. nv Not available 07/30/2023 18:08:26 08/13/2023 08/13/2023 IMPRESSION: 1. Seronegative RA. 2. Right shoulder impingement syndrome. 3. Osteoporosis. 4. Osteoarthritis. PLAN: 1. Bilateral knee arthrocentesis and intraarticular Euflexxa injection #3 today. The indications, risks, benefits and potential side effects of this knee injection procedure are discussed with the patient today in detail and informed, signed consent is obtained to proceed. With the patient lying in the supine position on the exam table and draped, landmarks are identified over the anterior superior lateral aspect of the knees and the injection sites are marked. The injection sites are cleaned with Betadine and while maintaining sterile technique, ethyl chloride spray is used to anesthetize the skin over both knees while in each instance, a sterile 25-gauge needle attached to a syringe containing 2 mL of 1% lidocaine is used to anesthetize a pathway from the skin to the intraarticular joint space. This needle is then withdrawn and while maintaining sterile technique, for each knee a sterile 18-gauge needle attached to a 30 mL syringe is introduced into the intra-articular joint space and aspiration performed. There was no aspirate obtained from either knee during these procedures today. While maintaining the position of the 18-gauge needle using a sterile pair of hemostats, the 30 mL syringe is unscrewed and the syringe containing the 2mL of Euflexxa is attached to the 18-gauge needle and the contents injected into the intraarticular space. Subsequently, the needle is withdrawn and the injection site areas are cleaned and covered with a sterile bandage. The patient tolerated the procedure well without bleeding or complications and is discharged home in stable condition. I performed this procedure today myself with the assistance of my nursing staff. Please see nursing notes regarding lot number and expiration date for today s Euflexxa doses. 2. Prolia 60 mg subcutaneously given x1 dose today. The indications, risks, benefits, and potential side effects of Prolia therapy were discussed today with the patient. The site of administration, name of the medication and the purpose for its administration all discussed with the patient today during a timeout prior to the procedure. With the patient seated at the end of the exam table in the upright position, the site of injection is marked and cleaned. The Prolia syringe is prepared with all air expelled from the injection syringe. After identifying and marking and cleaning the injection site, the Prolia syringe needle is introduced and the contents injected. The needle is subsequently removed and the area cleaned and covered with a sterile bandage. There was no blood loss or complications. Patient tolerated the procedure well and is discharged home in stable condition. Please see nursing notes regarding details of lot number and expiration date, as well as site of administration for today s Prolia dose. 3. Refill and continue current leflunomide dosing. 4. Increase ACTEMRA dosing to 162 mg subcutaneously once weekly. 5. Referral to Physical Therapy for the right shoulder twice weekly for 6 weeks. 6. Followup visit in 3-02/17 to 4 months with labs. nv Not available 08/16/2023 08:52:56 10/14/2023 10/14/2023 IMPRESSION: 1. Seronegative RA, currently worse. 2. Fibromyalgia syndrome, currently active with increased stress levels. 3. Osteoarthritis. 4. Osteoporosis, currently tolerating Prolia therapy well. PLAN: 1. Discontinue Actemra. 2. RINVOQ 15 mg orally daily. We will see prior authorization. She has failed multiple previous conventional DMARD agents and biologic agents. I discussed with her the indications, risks, benefits and potential side effects as well as mechanism of action of RINVOQ therapy today in detail. We discussed the risk of cytopenias, elevated LFTs and hyperlipidemia, as well as risk of infections, specifically shingles. We also discussed the risk of MACE events and VTE events. 3. Recommend prior to starting RINVOQ therapy she obtain her Shingrix vaccine #1. She may then within 2 weeks start her RINVOQ therapy. Patient is to avoid starting her RINVOQ until 1 week after her last Actemra infusion. All of these instructions are written out for her today in detail. 4. Labs today, including a CBC, CMP and acute phase reactants and vitamin D level. We will also obtain a magnesium and phosphorus level. 5. IM Depo-Medrol 100 mg x1 today. 6. Followup visit in November 2023 in [place] as scheduled. adina Not available 10/14/2023 20:31:38 11/26/2023 11/26/2023 IMPRESSION: 1. Seronegative RA, currently doing quite well on RINVOQ therapy. 2. Osteoarthritis of the knees. 3. Fibromyalgia syndrome. 4. Osteoporosis, currently tolerating Prolia antiresorptive therapy well. PLAN: 1. Discontinue leflunomide. 2. DMARD labs now by order given to the patient. 3. Continue current RINVOQ and Prolia therapy. 4. Continue current daily calcium and vitamin D intake. 5. We will also obtain serum magnesium, phosphorus and vitamin D levels at this time. 6. Followup visit in 4 months. adina Not available 11/26/2023 21:54:58 04/14/2024 04/14/2024 IMPRESSION: 1. Seronegative RA, currently flaring. 2. Osteoporosis, currently tolerating Prolia antiresorptive therapy. 3. Fibromyalgia syndrome. 4. Osteoarthritis. PLAN: 1. Prolia 60 mg given subcutaneously x1 dose today. The indications, risks, benefits, and potential side effects of Prolia therapy were discussed today with the patient. The site of administration, name of the medication and the purpose for its administration all discussed with the patient today during a timeout prior to the procedure. With the patient seated at the end of the exam table in the upright position, the site of injection is marked and cleaned. The Prolia syringe is prepared with all air expelled from the injection syringe. After identifying and marking and cleaning the injection site, the Prolia syringe needle is introduced and the contents injected. The needle is subsequently removed and the area cleaned and covered with a sterile bandage. There was no blood loss or complications. Patient tolerated the procedure well and is discharged home in stable condition. Please see nursing notes regarding details of lot number and expiration date, as well as site of administration for today s Prolia dose. 2. IM Depo Medrol 120 mg x1. 3. Currently her Arsenio is in prior authorization. I inquired today as to other medications she has taken. She has been on methotrexate, ACTEMRA and the RINVOQ, which itself caused a headache. We will check with pre-certs to see where we are at with the Arsenio prior authorization though I believe we are waiting on insurance response. She inquired about infusible therapy, whether or not there was a different infusible that might be easier to get approved. We will investigate this further. 4. Followup visit in 3 months for recheck. adina Not available 04/14/2024 15:33:18 Plan of Treatment Reminders Order Date Submit Date Provider Last Modified By Organization Details Last Modified Time Details Appointments Establish ed Patient 15.EST 2024 10:30A M Dr. Milton Snow Not available Not available Not available Lab None recorded. Referral None recorded. Procedures None recorded. Surgeries None recorded. Imaging None recorded. Medication Orders Depo-Medr ol 80 mg/mL suspensio n for injection 2024 025 [email or web address] [facility], [address] [facility] [address], [place], [address], 04/14/2024 17:19:17 Prolia 60 mg/mL subcutane ous syringe 2024 025 [email or web address] [facility], [address] [facility] [address], [place], [address], 04/14/2024 17:19:17 Depo-Medr ol 80 mg/mL suspensio n for injection 2023 024 [email or web address] [facility], [address] [facility] [address], [place], [address], 04/14/2024 11:17:08 leflunomi de 20 mg tablet 2023 024 [email or web address] [facility], [address] [facility] [address], [place], [address], 11/26/2023 15:13:20 Prolia 60 mg/mL subcutane ous syringe 2023 024 [email or web address] [facility], [address] [facility] [address], [place], [address], 08/13/2023 21:48:29 Euflexxa 10 mg/mL (mw 2.4-3.6 million) intra-art icular syringe 2023 024 [email or web address] [facility], [address] [facility] [address], [place], [address], 04/14/2024 11:17:12 Euflexxa 10 mg/mL (mw 2.4-3.6 million) intra-art icular syringe 2023 024 [email or web address] [facility], [address] [facility] [address], [place], [address], 04/14/2024 11:17:12 Euflexxa 10 mg/mL (mw 2.4-3.6 million) intra-art icular syringe 2023 024 [email or web address] [facility], [address] [facility] [address], [place], [address], 04/14/2024 11:17:12 Euflexxa 10 mg/mL (mw 2.4-3.6 million) intra-art icular syringe 2023 024 [email or web address] [facility], [address] [facility] [address], [place], [id number], 04/14/2024 11:17:12 Patient TargetsNo targets recorded. Patient Instructions Encounter Date Encounter Id Patient Instructions Last Modified By Organization Details Last Modified Time 08/13/2023 [id number] physical therapy * - Twice weekly for 6 weeks. R shoulder. Decrease pain, increase range of motion, increase stability. [email or web address] Not available 11/11/2023 11:46:48 Reason for Referral None Reported. Results Created Date Observation Date Name Description Value Unit Range Abnormal Flag Note LastModifiedBy Organization Detail LastModifiedTime 07/17/19 24 07/17/2023 CBC CBC Not Available [facility] [address], [place], [address], 07/17/2023 16:05:12 07/17/19 24 07/17/2023 CBC WBC 4.8 K/uL 3.8-11 .2 Not Available [facility] [address] [place] [address], [id number], 07/17/2023 16:05:12 07/17/19 24 07/17/2023 CBC RBC 4.28 M/uL 3.92-5 .10 Not Available [facility] [address] [place] [address], [id number], 07/17/2023 16:05:12 07/17/19 24 07/17/2023 CBC HGB 13.1 g/dL 11.8-1 5.3 Not Available [facility] [address] [place] [address], [id number], 07/17/2023 16:05:12 07/17/19 24 07/17/2023 CBC HCT 38.6 % 36.5-4 4.8 Not Available [facility] [address] [place] [address], [id number], 07/17/2023 16:05:12 07/17/19 24 07/17/2023 CBC MCV 90.2 fL 80.0-9 9.0 Not Available [facility] [address] [place] [address], [id number], 07/17/2023 16:05:12 07/17/19 24 07/17/2023 CBC MCH 30.6 pg 25.5-3 3.6 Not Available [facility] [address] [place] [address], [id number], 07/17/2023 16:05:12 07/17/19 24 07/17/2023 CBC MCHC 33.9 g/dL 32.0-3 6.0 Not Available [facility] [address] [place] [address], [id number], 07/17/2023 16:05:12 07/17/19 24 07/17/2023 CBC RDW-SD 41.1 fL 35.1 - 46.3 Not Available [facility] [address] [place] [address], [id number], 07/17/2023 16:05:12 07/17/19 24 07/17/2023 CBC plt 255 K/uL 130-40 0 Not Available [facility] [address] [place] [address], [id number], 07/17/2023 16:05:12 07/17/19 24 07/17/2023 CBC MPV 9.7 fL 9.3-12 .8 Not Available [facility] [address] [place] [address], [id number], 07/17/2023 16:05:12 07/17/19 24 07/17/2023 vitam in D, 25-hy droxy , total , serum vitamin D 25-hydroxy totl 59.0 NG/mL 30.0-8 0.0 Less than 20 ng/mL Defic iency 20-29 ng/mL Insuf ficie ncy 30-80 ng/mL Optim al Great er than 80 ng/mL Possi ble toxic ity Not Available [facility] [address] [place] [address], [id number], 07/17/2023 16:08:01 07/17/19 24 07/17/2023 CMP, serum or plasm a comp. met. panel Not Available [facility] [address] [place] [address], [id number], 07/17/2023 16:25:07 07/17/19 24 07/17/2023 CMP, serum or plasm a sodium 133 mmol/ L 136-14 6 low Not Available [facility] [address] [place] [address], 1985[address], 07/17/2023 16:25:07 07/17/19 24 07/17/2023 CMP, serum or plasm a potassium 5.1 mmol/ L 3.5-5. 1 Not Available [facility] [address] [place] [address], 10[address], 07/17/2023 16:25:07 07/17/19 24 07/17/2023 CMP, serum or plasm a chloride 100 mmol/ L 98-110 Not Available [facility] [address] [place] [address], [address], 07/17/2023 16:25:07 07/17/19 24 07/17/2023 CMP, serum or plasm a CO2 27 mEq/L 20-32 Not Available [facility] [address] [place] [address], [id number], 07/17/2023 16:25:07 07/17/19 24 07/17/2023 CMP, serum or plasm a anion gap 11 mmol/ L 10-22 Not Available [facility] [address] [place] [address], [id number], 07/17/2023 16:25:07 07/17/19 24 07/17/2023 CMP, serum or plasm a glucose 103 mg/dL 70-100 high Not Available [facility] [address] [place] [address], 69[address], 07/17/2023 16:25:07 07/17/19 24 07/17/2023 CMP, serum or plasm a calcium 9.7 mg/dL 8.4-10 .4 Not Available [facility] [address] [place] [address], [id number], 07/17/2023 16:25:07 07/17/19 24 07/17/2023 CMP, serum or plasm a total protein 6.9 g/dL 6.4-8. 3 Not Available [facility] [address] [place] [address], [id number], 07/17/2023 16:25:07 07/17/19 24 07/17/2023 CMP, serum or plasm a albumin 4.6 g/dL 3.5-5. 3 Not Available [facility] [address] [place] [address], 02609, 07/17/2023 16:25:07 07/17/19 24 07/17/2023 CMP, serum or plasm a ALP 140 U/L 44 - 127 high Not Available [facility] [address] [place] [address], [id number], 07/17/2023 16:25:07 07/17/19 24 07/17/2023 CMP, serum or plasm a AST (SGOT) 23 U/L 10-40 Not Available [facility] [address] [place] [address], 778[address], 07/17/2023 16:25:07 07/17/19 24 07/17/2023 CMP, serum or plasm a total bilirubin 0.3 mg/dL 0.2-1. 0 Not Available [facility] [address] [place] [address], [id number], 07/17/2023 16:25:07 07/17/19 24 07/17/2023 CMP, serum or plasm a ALT (SGPT) 25 U/L 8-35 Not Available [facility] [address] [place] [address], 6[address], 07/17/2023 16:25:07 07/17/19 24 07/17/2023 CMP, serum or plasm a BUN 15 mg/dL 7-21 Not Available [facility] [address] [place] [address], [id number], 07/17/2023 16:25:07 07/17/19 24 07/17/2023 CMP, serum or plasm a creatinine 0.7 mg/dL 0.7-1. 3 Not Available [facility] [address] [place] [address], [id number], 07/17/2023 16:25:07 07/17/19 24 07/17/2023 CMP, serum or plasm a GFR(non-afri can icelandic) 92 Not Available [facility] [address] [place] [address], 236[address], 07/17/2023 16:25:07 07/17/19 24 07/17/2023 CMP, serum or plasm a GFR() 111 ([employer] SILVANA KIDNE Y DISEA SE HAS A GFR LESS THAN 60 ML/NH N/1.7 3 MM FOR A PERIO D OF THREE MONTH S OR MORE. ) Not Available [facility] [address] [place] [address], [id number], 07/17/2023 16:25:07 07/17/19 24 07/17/2023 C-regino ctive prote in, quant itati ve, serum or plasm a CRP Not Available [facility] [address] [place] [address], [id number], 07/17/2023 16:25:09 07/17/19 24 07/17/2023 C-regino ctive prote in, quant itati ve, serum or plasm a CRP <0.4 mg/dL <0.4-0 .5 Not Available [facility] [address] [place] [address], 37[address], 07/17/2023 16:25:09 07/17/19 24 07/17/2023 ESR (eryt hrocy te sedim entat ion rate) , blood sed rate 4 mm/HR 0 - 30 Not Available [facility] [address] [place] [address], [id number], 07/17/2023 17:46:41 07/17/19 24 07/17/2023 CMP, serum or plasm a comp. met. panel Not Available [facility] [address] [place] [address], [id number], 07/17/2023 16:09:55 07/17/19 24 07/17/2023 CMP, serum or plasm a sodium PENDIN G Not Available [facility] [address] [place] [address], 330[address], 07/17/2023 16:09:55 07/17/19 24 07/17/2023 CMP, serum or plasm a potassium 5.1 mmol/ L 3.5-5. 1 Not Available [facility] [address] [place] [address], 51068, 07/17/2023 16:09:55 07/17/19 24 07/17/2023 CMP, serum or plasm a chloride 100 mmol/ L 98-110 Not Available [facility] [address] [place] [address], 84637, 07/17/2023 16:09:55 07/17/19 24 07/17/2023 CMP, serum or plasm a CO2 27 mEq/L 20-32 Not Available [facility] [address] [place] [address], 46973, 07/17/2023 16:09:55 07/17/19 24 07/17/2023 CMP, serum or plasm a anion gap PENDIN G Not Available [facility] [address] [place] [address], [id number], 07/17/2023 16:09:55 07/17/19 24 07/17/2023 CMP, serum or plasm a glucose 103 mg/dL 70-100 high Not Available [facility] [address] [place] [address], 21308, 07/17/2023 16:09:55 07/17/19 24 07/17/2023 CMP, serum or plasm a calcium 9.7 mg/dL 8.4-10 .4 Not Available [facility] [address] [place] [address], [id number], 07/17/2023 16:09:55 07/17/19 24 07/17/2023 CMP, serum or plasm a total protein 6.9 g/dL 6.4-8. 3 Not Available [facility] [address] [place] [address], [id number], 07/17/2023 16:09:55 07/17/19 24 07/17/2023 CMP, serum or plasm a albumin 4.6 g/dL 3.5-5. 3 Not Available [facility] [address] [place] [address], [id number], 07/17/2023 16:09:55 07/17/19 24 07/17/2023 CMP, serum or plasm a ALP 140 U/L 44 - 127 high Not Available [facility] [address] [place] [address], [id number], 07/17/2023 16:09:55 07/17/19 24 07/17/2023 CMP, serum or plasm a AST (SGOT) 23 U/L 10-40 Not Available [facility] [address] [place] [address], [id number], 07/17/2023 16:09:55 07/17/19 24 07/17/2023 CMP, serum or plasm a total bilirubin 0.3 mg/dL 0.2-1. 0 Not Available [facility] [address] [place] [address], 71231, 07/17/2023 16:09:55 07/17/19 24 07/17/2023 CMP, serum or plasm a ALT (SGPT) 25 U/L 8-35 Not Available [facility] [address] [place] [address], [id number], 07/17/2023 16:09:55 07/17/19 24 07/17/2023 CMP, serum or plasm a BUN 15 mg/dL 7-21 Not Available [facility] [address] [place] [address], [id number], 07/17/2023 16:09:55 07/17/19 24 07/17/2023 CMP, serum or plasm a creatinine 0.7 mg/dL 0.7-1. 3 Not Available [facility] [address] [place] [address], 83319, 07/17/2023 16:09:55 07/17/19 24 07/17/2023 CMP, serum or plasm a GFR(non-afri can icelandic) 92 Not Available [facility] [address] [place] [address], 61591, 07/17/2023 16:09:55 07/17/19 24 07/17/2023 CMP, serum or plasm a GFR() 111 ([employer] SILVANA KIDNE Y DISEA SE HAS A GFR LESS THAN 60 ML/NH N/1.7 3 MM FOR A PERIO D OF THREE MONTH S OR MORE. ) Not Available [facility] [address] [place] [address], 09435, 07/17/2023 16:09:55 10/14/19 24 10/14/2023 CBC CBC Not Available [facility] [address] [place] [address], 07794, 10/14/2023 15:41:56 10/14/19 24 10/14/2023 CBC WBC 4.7 K/uL 3.8-11 .2 Not Available [facility] [address] [place] [address], 94039, 10/14/2023 15:41:56 10/14/19 24 10/14/2023 CBC RBC 4.22 M/uL 3.92-5 .10 Not Available [facility] [address] [place] [address], [id number], 10/14/2023 15:41:56 10/14/19 24 10/14/2023 CBC HGB 12.9 g/dL 11.8-1 5.3 Not Available [facility] [address] [place] [address], 36078, 10/14/2023 15:41:56 10/14/19 24 10/14/2023 CBC HCT 37.3 % 36.5-4 4.8 Not Available [facility] [address] [place] [address], [id number], 10/14/2023 15:41:56 10/14/19 24 10/14/2023 CBC MCV 88.4 fL 80.0-9 9.0 Not Available [facility] [address] [place] [address], 44466, 10/14/2023 15:41:56 10/14/19 24 10/14/2023 CBC MCH 30.6 pg 25.5-3 3.6 Not Available [facility] [address] [place] [address], 65907, 10/14/2023 15:41:56 10/14/19 24 10/14/2023 CBC MCHC 34.6 g/dL 32.0-3 6.0 Not Available [facility] [address] [place] [address], 47783, 10/14/2023 15:41:56 10/14/19 24 10/14/2023 CBC RDW-SD 42.6 fL 35.1 - 46.3 Not Available [facility] [address] [place] [address], [id number], 10/14/2023 15:41:56 10/14/19 24 10/14/2023 CBC plt 270 K/uL 130-40 0 Not Available [facility] [address] [place] [address], 86944, 10/14/2023 15:41:56 10/14/19 24 10/14/2023 CBC MPV 9.6 fL 9.3-12 .8 Not Available [facility] [address] [place] [address], 11651, 10/14/2023 15:41:56 10/14/19 24 10/14/2023 CMP, serum or plasm a comp. met. panel Not Available [facility] [address] [place] [address], [id number], 10/14/2023 15:58:54 10/14/19 24 10/14/2023 CMP, serum or plasm a sodium 131 mmol/ L 136-14 6 low Not Available [facility] [address] [place] [address], 41565, 10/14/2023 15:58:54 10/14/19 24 10/14/2023 CMP, serum or plasm a potassium 4.4 mmol/ L 3.5-5. 1 Not Available [facility] [address] [place] [address], 41503, 10/14/2023 15:58:54 10/14/19 24 10/14/2023 CMP, serum or plasm a chloride 100 mmol/ L 98-110 Not Available [facility] [address] [place] [address], [id number], 10/14/2023 15:58:54 10/14/19 24 10/14/2023 CMP, serum or plasm a CO2 29 mEq/L 20-32 Not Available [facility] [address] [place] [address], [id number], 10/14/2023 15:58:54 10/14/19 24 10/14/2023 CMP, serum or plasm a anion gap 6 mmol/ L 10-22 low Not Available [facility] [address] [place] [address], 7[address], 10/14/2023 15:58:54 10/14/1910/14/2023 CMP, serum or plasm a glucose 103 mg/dL 70-100 high Not Available [facility] [address] [place] [address], 93074, 10/14/2023 15:58:54 10/14/19 24 10/14/2023 CMP, serum or plasm a calcium 9.5 mg/dL 8.4-10 .4 Not Available [facility] [address] [place] [address], 26[address], 10/14/2023 15:58:54 10/14/19 24 10/14/2023 CMP, serum or plasm a total protein 6.6 g/dL 6.4-8. 3 Not Available [facility] [address] [place] [address], [address], 10/14/2023 15:58:54 10/14/19 24 10/14/2023 CMP, serum or plasm a albumin 4.1 g/dL 3.5-5. 3 Not Available [facility] [address] [place] [address], [address], 10/14/2023 15:58:54 10/14/19 24 10/14/2023 CMP, serum or plasm a ALP 85 U/L 44 - 127 Not Available [facility] [address] [place] [address], 60[address], 10/14/2023 15:58:54 10/14/19 24 10/14/2023 CMP, serum or plasm a AST (SGOT) 22 U/L 10-40 Not Available [facility] [address] [place] [address], 80706, 10/14/2023 15:58:54 10/14/19 24 10/14/2023 CMP, serum or plasm a total bilirubin 0.3 mg/dL 0.2-1. 0 Not Available [facility] [address] [place] [address], 40541, 10/14/2023 15:58:54 10/14/19 24 10/14/2023 CMP, serum or plasm a ALT (SGPT) 23 U/L 8-35 Not Available [facility] [address] [place] [address], 58208, 10/14/2023 15:58:54 10/14/19 24 10/14/2023 CMP, serum or plasm a BUN 16 mg/dL 7-21 Not Available [facility] [address] [place] [address], 90805, 10/14/2023 15:58:54 10/14/19 24 10/14/2023 CMP, serum or plasm a creatinine 0.8 mg/dL 0.7-1. 3 Not Available [facility] [address] [place] [address], 18[address], 10/14/2023 15:58:54 10/14/19 24 10/14/2023 CMP, serum or plasm a GFR(non-afri can icelandic) 79 Not Available [facility] [address] [place] [address], 69279, 10/14/2023 15:58:54 10/14/19 24 10/14/2023 CMP, serum or plasm a GFR() 95 (VOCATIONAL N[employer]SING INSTRUCTOR SILVANA KIDNE Y DISEA SE HAS A GFR LESS THAN 60 ML/NH N/1.7 3 MM FOR A PERIO D OF THREE MONTH S OR MORE. ) Not Available [facility] [address] [place] [address], [address]32, 10/14/2023 15:58:54 10/14/19 24 10/14/2023 C-regino ctive prote in, quant itati ve, serum or plasm a CRP Not Available [facility] [address] [place] [address], 89634, 10/14/2023 15:58:56 10/14/19 24 10/14/2023 C-regino ctive prote in, quant itati ve, serum or plasm a CRP <0.4 mg/dL <0.4-0 .5 Not Available [facility] [address] [place] [address], 83738, 10/14/2023 15:58:56 10/14/19 24 10/14/2023 ESR (eryt hrocy te sedim entat ion rate) , blood sed rate 3 mm/HR 0 - 30 Not Available [facility] [address] [place] [address], 02142, 10/14/2023 16:07:39 12/15/19 24 04/15/2023 imagi ng/di agnos tic resul t No observ ation record ed. [email or web address] Not Available 21:30:19 12/15/19 24 05/13/2023 imagi ng/di agnos tic resul t No observ ation record ed. [email or web address] Not Available 21:30:21 12/15/19 24 06/17/2023 imagi ng/di agnos tic resul t No observ ation record ed. [email or web address] Not Available 21:30:23 Result Notes None recorded. Problems Name Problem SNOMED Code Status Onset Date Resolution Date Notes Provider Name and Address Organization Details Recorded Time Rheumatoid arthritis 83923867 Active 2023 Kelly Crissypat [facility] 5 16:34:16 Seronegativ e rheumatoid arthritis 194971159 Active 2023 Joyce Mercer [facility] 5 11:51:41 Bilateral osteoarthri tis of knees 9952583320068 07 Active 2023 Ladan Leigh [facility] 4 10:01:50 Psoriasis 0887293 Active 2023 Ladan Leigh [facility] 4 10:01:57 Fibromyalgi a 684809634 Active 2023 Ladan Leigh [facility] 4 10:02:06 High risk drug monitoring Active 2023 Ladan Leigh [facility] 4 10:02:16 Closed fracture distal tibia 378700062 Active 2023 Ladan Leigh [facility] 4 10:08:22 Vitamin D deficiency 32861606 Active 2023 Ladan Leigh [facility] 4 10:08:34 Chronic pain syndrome 017747327 Active 2023 Ladan Leigh [facility] 4 10:08:49 Osteoporosi s 86009471 Active 2023 Kelly Dao [facility] 5 16:40:54 Hypervitami nosis D 82282080 Active 2023 Holley Case [facility] 4 11:47:33 Impingement syndrome of right shoulder region 9988635382224 02 Active 2023 Milton Snow MD [address] [place] [address], [phone], [facility] 4 14:38:16 Problem Notes None recorded. Procedures Surgical History Date Name Laterality Status Provider Name and Address Organization Details Recorded Time 019 excision of lipoma completed [facility] 05/27/2023 10:11:12 018 hysterectomy completed [facility] 05/27/2023 10:10:25 018 sacrocolpopexy completed [facility] 05/27/2023 10:11:51 hemorrhoidectomy completed [facility] 05/27/2023 10:10:09 insertion of single incision mid-urethral mini-sling completed [facility] 05/27/2023 10:11:28 ligation of bilateral fallopian tubes completed [facility] 05/27/2023 10:11:59 denervation of paracervical uterine nerves completed [facility] 05/27/2023 10:12:13 Colonoscopy with biopsy completed Not Available [facility] 07/15/2023 19:32:25 Total hysterectomy completed Not Available Health Note 07/15/2023 19:32:25 Imaging Results Imaging Date Name Status LastModified by Organiz ation Details LastModified Time 04/15/2023 imaging/diag nostic result completed Information not available 12/15/2023 21:30:19 05/13/2023 imaging/diag nostic result completed Information not available 12/15/2023 21:30:21 06/17/2023 imaging/diag nostic result completed Information not available 12/15/2023 21:30:23 Procedure Notes None recorded. Medical Equipment None Reported. Allergies Allergen ID Allergen Name Allergen Category Reaction Reaction Severity Criticality Documentation Date Start Date Code Code System Note Provider Name and Address Organization Details Recorded Time 0989232 divalproe x sodium medicatio n anaphylax is Not available high 05/27/2023 71201 6 RxNorm Not Available Not Available Not Available 3907220 lithium Not available anaphylax is Not available high 05/27/2023 6448 RxNorm Not Available Not Available Not Available 5768038 Macrobid medicatio n rash Not available Not available 05/27/2023 76502 1 RxNorm Not Available Not Available Not Available 3756100 Lamictal medicatio n other Not available Not available 05/27/2023 93024 2 RxNorm Not Available Not Available Not Available 3928092 lamotrigi ne medicatio n Not available Not available Not available 11/25/20232023 98502 RxNorm Not Available Not Available Not Available 645428 Product containin g penicilli n (product) medicatio n hives Not available Not available 03/16/20232006 22002 8001 SNOMED Not Available Not Available Not Available Medications Name Sig Start Date Stop Date Status Note LastModified by Organization Details LastModified Time sulfasala zine 500 mg tablet take 1 tablet twice a day for 7 days, then take 2 tabs every am and 1 every pm for 7 days, then 2 tabs bid daily 2024 active Not Available Not Available Not Avai lable esterifie d estrogens -methylte stosteron e 0.625 mg-1.25 mg tablet 07/16 completed Not Available Not Available Not Available famotidin e 40 mg tablet take 1 tablet daily active Not Available Not Available No t Available Medrol (Silvestre) 4 mg tablets in a dose pack Take 1 dose pk by oral route. 04/14 completed Not Available Not Available Not Available metoprolo l succinate ER 100 mg tablet,ex tended release 24 hr TAKE 1 TABLET DAILY active Not Available Not Available No t Available sertralin e 100 mg tablet take 1 tablet daily active 1.5 tablets daily Not Available Not Available Not Available prednison e 5 mg tablet 07/16 completed Not Available Not Available Not Available leflunomi de 20 mg tablet Take 1 tablet every day by oral route for 30 days. 11/25 completed simrani aldo at 11/26/23 appt. Not Available Not Available Not Available tramadol 50 mg tablet prn active Not Available Not Available Not Available Medrol 4 mg tablet TAKE 6 TABLETS ONCE DAILY FOR 2 DAYS, THEN TAKE 5 TABLETS ONCE DAILY FOR 4 DAYS, THEN TAKE 4 TABLETS ONCE DAILY FOR 4 DAYS, THEN TAKE 3 TABLETS ONCE DAILY FOR 4 DAYS, THEN TAKE 2 TABLETS ONCE DAILY FOR 4 DAYS, THEN TAKE 1 TABLET DAILY FOR 4 DAYS. OFF. 04/14 completed Not Available Not Available Not Available Depo-Medr ol 80 mg/mL suspensio n for injection Take 120 mg by injectio n route. 2024 active Not Available Not Available Not Avai lable bupropion HCl 100 mg tablet 07/16 completed Not Available Not Available Not Available propranol ol 10 mg tablet take 1 tablet daily active Not Available Not Available No t Available lorazepam 0.5 mg tablet 05/26 completed Not Available Not Available Not Available buspirone 30 mg tablet active Not Available Not Available Not Available bupropion HCl 75 mg tablet active Not Available Not Available Not Available oxcarbaze pine 600 mg tablet take 1 tablet twice daily active 1.5 tablets daily Not Available Not Available Not Available morphine ER 15 mg tablet,ex tended release 05/26 completed Not Available Not Available Not Available estradiol 0.5 mg tablet active Not Available Not Available Not Available ergocalci ferol (vitamin D2) 1,250 mcg (50,000 unit) capsule TAKE 1 CAPSULE WEEKLY 04/14 completed Not Available Not Available Not Available albuterol sulfate HFA 90 mcg/actua tion aerosol inhaler 10/13 completed Not Available Not Available Not Available Premarin 0.3 mg tablet TAKE 1 TABLET BY MOUTH EVERY DAY active Not Available Not Available No t Available mirtazapi ne 7.5 mg tablet 05/26 completed Not Available Not Available Not Available Euflexxa 10 mg/mL (mw 2.4-3.6 million) intra-art icular syringe INJECT 2 ML INTRA-AR TICULARL Y ONCE WEEKLY FOR 3 WEEKS 04/14 completed Not Available Not Available Not Available Vitamin D3 50 mcg (2,000 unit) tablet Take 1 tablet every day by oral route. active Not Available Not Available No t Available Actemra 200 mg/10 mL (20 mg/mL) intraveno us solution INFUSE 4 MG/KG OVER 60 MINUTE(S ) BY INTRAVEN OUS ROUTE EVERY 4 WEEKS 06/07 completed repalced with Rinvoq Not Available Not Available Not Available Prolia 60 mg/mL subcutane ous syringe INJECT 1 MILLILIT ER (60 MG) BY SUBCUTAN EOUS ROUTE EVERY 6 MONTHS 2024 active Not Available Not Available Not Avai lable Xeljanz XR 11 mg tablet,ex tended release Take 1 tablet every day by oral route. 04/14 completed never started due to insuranc e issues/c ost Not Available Not Available Not Available Actemra ACTPen 162 mg/0.9 mL subcutane ous pen injector Inject 0.9 mL every week by subcutan eous route. 10/13 completed Not Available Not Available Not Available Rinvoq 15 mg tablet,ex tended release TAKE 1 TABLET BY MOUTH DAILY 03/04 completed Not Available Not Available Not Available Vitals Date Recorded Body height Provider Name an d Address Organization Details Last Updated DateTime 07/30/2023 170.18 cm [facility] 07/30/2023 13:58:36 Date Recorded Body height Body mass index (BMI) Body weight Heart rate Oxygen saturation Oxygen saturation in Arterial blood by Pulse oximetry Pain severity - 0-10 verbal numeric rating [Score] - Reported Systolic blood pressure Diastolic blood pressure Provider Name and Address Organization Details Last Updated DateTime 170.18 cm 26.2 kg/m2 52425.9 3 g 66 /min 95 % 95 % 4 128 mm[Hg] 86 mm[Hg] [facility] 4 14:08:13 Date Recorded Body height Body mass index (BMI) Body weight Heart rate Oxygen saturation Oxygen saturation in Arterial blood by Pulse oximetry Pain severity - 0-10 verbal numeric rating [Score] - Reported Provider Name and Address Organization Details Last Updated DateTime 4 170.18 cm 25.9 kg/m2 85855.5 4 g 73 /min 97 % 97 % 4 Josefina Rivers [facility] 4 11:57:59 Date Recorded Body height Body mass index (BMI) Body weight Heart rate Oxygen saturation Oxygen saturation in Arterial blood by Pulse oximetry Pain severity - 0-10 verbal numeric rating [Score] - Reported Systolic blood pressure Diastolic blood pressure Provider Name and Address Organization Details Last Updated DateTime 4 170.18 cm 25.6 kg/m2 51826.9 9 g 70 /min 96 % 96 % 0 126 mm[Hg] 78 mm[Hg] Josefina Rivers [facility] 4 14:22:54 Date Recorded Body height Heart rate Oxygen saturation Oxygen saturation in Arterial blood by Pulse oximetry Systolic blood pressure Diastolic blood pressure Provider Name and Address Organization Details Last Updated DateTime 5 170.18 cm 76 /min 99 % 99 % 118 mm[Hg] 78 mm[Hg] Malcolm Carvajalw [facility] 5 11:16:46 Social History Question Answer Notes LastModified by Organizat ion Details LastModified Time Tobacco Smoking Status Former Smoker Josefina Rivers [facility] 11/26/2023 14:24:13 Do You Have An Advance Directive? No [email or web address] Information not available 08/06/2023 What Is Your Level Of Alcohol Consumption? None [email or web address] Information not available 08/06/2023 What Is Your Level Of Caffeine Consumption? Moderate [email or web address] Information not available 08/06/2023 Are You Currently Employed? 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 Less Than 1 Time Per Week [email or web address] Information not available 08/06/2023 When Did You Quit Smoking? 2022 [email or web address] Information not available 10/14/2023 Do You Have A Medical Power Of Barrel Filler Head? No [email or web address] Information not available 08/06/2023 What Was The Date Of Your Most Recent Tobacco Screening? 08/13/2023 [email or web address] Information not available 08/06/2023 What Is Your Relationship Status? [email or web address] Information not available 08/06/2023 Do You Use Any Illicit Or Recreational Drugs? No [email or web address] Information not available 08/06/2023 Sex: Unknown Functional Status Question Answer Note LastModified by Organizat ion Details LastModified Time What is your exercise level? Occasional [email or web address] Information not available 08/06/2023 Mental Status None recorded. Family History Relationship Description Onset Age of this Age Resolved Age Notes LastModified by Organization Details LastModified Time Mother Hypertensive disorder Not available 2023 10:09:36 Mother Malignant tumor of breast [email or web address] Not available 2023 10:09:49 Mother Arthritis [email or web address] Not available 07/15/2023 19:32:24 Mother Osteoporosis [email or web address] Not availa ble 07/15/2023 19:32:24 Brother Arthritis [email or web address] Not availabl e 07/15/2023 19:32:24 Maternal Grandmother Osteoporosis [email or web address] Not available 0 07/15/2023 19:32:24 Maternal Grandfather Arthritis [email or web address] Not available 07/18 15:03:42 Maternal Grandfather Osteoporosis [email or web address] Not available 0 08/06/2023 15:03:43 Unspecified Relation Seizure disorder [email or web address] Not available 2023 15:03:43 Medical History Condition Response Diabetes N Anxiety Disorder Y Bleeding Disorder N Attention-deficit Hyperactivity Disorder N High Blood Pressure Y Arthritis Y Hyperlipidemia N Cancer N Thyroid Problems N Stroke N Asthma N COPD N Depression Y Anemia N Seizures N Heart Disease N Fibromyalgia Y Osteoporosis Y Kidney Disease N Gynecological HistoryNo gynecological history recorded. Obstetrics History GPAL:G 0 P 0 0 0 0 Immunizations Vaccine Type Date Status Note Provider Nam e and Address Organization Details Recorded Time Influenza, split virus, quadrivalent, preservative 8 completed Ladan Leigh [facility] 07/17/2023 11:54:37 Influenza, split virus, quadrivalent, preservative 9 completed Ladan Reese [facility] 07/17/2023 11:54:37 Influenza, split virus, quadrivalent, preservative 3 completed Ladan Reese [facility] 07/17/2023 11:54:37 COVID-19, mRNA, LNP-S, PF, 30 mcg/0.3 mL dose 1 completed Ladanchary Leigh [facility] 07/17/2023 11:54:37 COVID-19, mRNA, LNP-S, PF, 30 mcg/0.3 mL dose 1 completed Ladanchary Leigh [facility] 07/17/2023 11:54:37 COVID-19, mRNA, LNP-S, PF, 30 mcg/0.3 mL dose 1 completed Ladanchary Leigh [facility] 07/17/2023 11:54:37 COVID-19, mRNA, LNP-S, bivalent, PF, 30 mcg/0.3 mL dose 2 completed [facility] 07/17/2023 11:54:37 Influenza, split virus, quadrivalent, PF 1 completed Ladan [facility] 07/17/2023 11:54:37 Influenza, split virus, quadrivalent, PF 0 completed Ladan [facility] 07/17/2023 11:54:37 Influenza, split virus, quadrivalent, PF 2 [facility] 07/17/2023 11:54:37 Past Encounters Encounter ID Performer Location Encounter Start Date Encounter Closed Date Diagnosis/Indication Diagnosis SNOMED-CT Code Diagnosis ICD10 Code Diagnosis Note [id number] Milton Snow MD [address] [place] [address] [facility] [address] [place] [address],[address] [place] [phone] 07/17/2023 11:33:30 07/17/2023 18:15:19 Seropositive rheumatoid arthritis 508428914 M05.9 Bilateral osteoarthritis of knees 3942951316 31201 M17.0 Vitamin D deficiency 347 98466 E55.9 Seropositi ve rheumatoid arthritis of multiple joints 2619427920 3962534 M05.89 [id number] Milton Snow MD [facility] ([place]) [address] [place], [place] [address] [place] [address] 07/30/2023 13:55:45 08/03/2023 23:49:37 Bilateral osteoarthritis of knees 3182770228 69680 M17.0 Rheumatoid arthritis 698 97988 M06.9 [id number] Milton Snow MD [facility] ([place]) [facility] [place] [address] 08/13/2023 13:51:42 08/18/2023 09:44:16 Bilateral osteoarthritis of knees 2917554714 23295 M17.0 Osteoporosis 99803706 M8 1.0 Impingemen t syndrome of right shoulder region 5357502880 04260 M75.41 Seropositi ve rheumatoid arthritis 991762958 M05.9 Rheumatoid arthritis of multiple joints 278843094 M06.89 Long-term current use of immunosuppressive drug 283053318 Z79.594 [id number] Milton Snow MD [address] [place] [address] [facility] ([place]) [address] [place] [phone] 10/14/2023 11:38:35 10/14/2023 18:35:07 Seronegative rheumatoid arthritis 956921204 M06.00 Fibromyalgia 201149013 M 79.7 Bilateral osteoarthritis of knees 0976524461 27471 M17.0 Rheumatoid arthritis of multiple joints 445063714 M06.89 Additional diagnosis detail: Other specified rheumatoid arthritis, multiple sites Long-term current use of drug therapy 806468458 Z79.899 Additional diagnosis detail: Other usp (current) drug therapy [id number] Milton Snow MD [facility] ([place]) [address] [place], [place] [address] [place] [address] 11/26/2023 13:57:50 11/30/2023 10:38:46 Seronegative rheumatoid arthritis 136819939 M06.00 Osteoporosis 15016868 M8 1.0 Fibromyalgia 079657253 M 79.7 Bilateral osteoarthritis of knees 7107390083 40091 M17.0 Vitamin D deficiency 347 03735 E55.9 [id number] Milton Snow MD [facility] ([place] [address] [facility] [address] 04/14/2024 11:00:26 04/15/2024 10:54:16 Osteoporosis 64798429 M81.0 Seronegati ve rheumatoid arthritis 056651448 M06.00 Fibromyalgia 950095005 M 79.7 Hypervitaminosis D 20349 000 E67.3 Health Concerns Section Related Observation LastModified by Organization Detai ls LastModified Time None Recorded Concern Status LastModified by Organization Details LastModified Time None Recorded Advance Directives Directive N: Payers Encounter Date Sequence Insurance Name Policy Number Policy Alonzo Covered Member ID Alonzo Member ID Guarantor Name 07/30/2023 1 [facility] (MEDICARE REPLACEMENT /ADVANTAGE - HMO) Celina Hoffmancker [id number] Celina Cathy [place] 08/13/2023 1 [facility] (MEDICARE REPLACEMENT /ADVANTAGE - HMO) Celina Cathy [place] [id number] Celina A [place] 10/14/2023 1 [facility] [id number] Adrian Ordaz [id number] Celina A [place] 11/26/2023 1 [facility] [id number] Adrian Orlin [id number] Celina A [place] 04/14/2024 1 [facility] [id number] Adrian Orlin [id number] Celina Ordaz Notes Date Note Type Note Provider Name and Address Organization Details Recorded Time text/html The patient is a 58-year-old female with osteoarthritis of the knees, who is here today for bilateral knee Euflexxa injection #2.nv Milton Snow MD [facility] [address], [address], [facility] 08/04/2023 23:11:36 4 text/html The patient is a 58-year-old female, here for bilateral knee Euflexxa injections #3, as well as a followup visit. She is also on Prolia for her osteoarthritis and continues on ACTEMRA and leflunomide therapy for the management of her seronegative RA. She also has osteoarthritis. She reports today a flare over the past 2-3 weeks of right shoulder impingement symptoms. She has been doing a lot of gardening lately and thinks she simply over did it with her shoulder. She has difficulties lying on her shoulder at night. The pain is described as a pinching toothache type discomfort that radiates from the deltoid area towards the elbow. She brings it on with her right arm if she reaches overhead or forward, as well as engages in any lifting, pushing, or pulling activities. She rates her pain a 5-6/10 on a scale. Overall her Euflexxa shots have been helping somewhat with her knee pain and stiffness. She does keep very active on her feet. She denies any falls or fractures since last visit. She has been tolerating her Prolia therapy well without postdosing dental issues or bone pain. She tolerates her ACTEMRA therapy and has now completed her first month of treatments. The takes the injection every other week currently and continues on her leflunomide therapy in combination with the ACTEMRA. She does find that the subcutaneous injections of ACTEMRA do not seem to be quite as effective as the infusion monthly was in the past. Currently her morning stiffness is lasting up to an hour in duration.vickie Burgess a 58 year oldfemalepresenting for care. Milton Snow MD [facility] [place] [address], [phone], [facility] 08/18/2023 11:32:38 4 text/html The patient is a 58-year-old female with seronegative RA, psoriasis, fibromyalgia syndrome and osteoarthritis, who is here today for a followup visit. She continues on Actemra in combination with her leflunomide, but reports the Actemra really does not seem to be helping. We had actually switched her from every other week to once weekly dosing and even with the dose augmentation, she continues to experience 1 hour or morning stiffness and pain and swelling involving the hands at the MCP and PIP joints, as well as wrists, elbows, knees, ankles and MTP joints of the feet. She rates her pain a 4-6/10 on a scale. She has not encountered any rash. No Raynaud s symptoms, fevers, unexplained weight loss, aphthous ulcers, inflammatory eye symptoms, neck swelling, lymph node swelling, cough, pleurisy, shortness of breath, chest pain or palpitations, GERD, melena or hematochezia, diarrhea or constipation. She has no history of myocardial infarctions, DVT or PE. She has had chickenpox in the past, but has not had shingles. She has not received the Shingrix vaccine. She does report tolerating her Prolia therapy for her osteoporosis. She has had no falls or fractures since last visit.adina Snow MD [address] [place] [address], [phone], [facility] 10/15/2023 08:52:28 4 text/html The patient is a 58-year-old female with seronegative RA, fibromyalgia syndrome, osteoarthritis, and osteoporosis, who is here today for a followup visit. She did start the RINVOQ therapy and reports within 2 weeks her joints felt tremendously better. Essentially, her joint pain disappeared and aside from some twinges of pain occasionally in her osteoarthritic knees, she is doing quite well. She has had minimal morning stiffness, generally resolving within 5-10 minutes once she is up and physically active. She tolerates the RINVOQ without postdosing headache, nausea, vomiting, stomatitis, alopecia, cough, pleurisy, shortness of breath, chest pain or palpitations, GERD, melena or hematochezia, diarrhea or constipation, anorexia or early satiety. She has had no myocardial infarctions or blood clots since last visit. She denies any outbreaks of shingles. Her appetite is normal, energy level is normal. No Raynaud s symptoms.adina Celina Burgess a 58 year oldfemalepresenting for care. Milton Snow MD [facility] [place] [address], [phone], [facility] 11/28/2023 12:58:29 text/html The patient is a 58-year-old female with a history of seronegative RA, osteoarthritis, fibromyalgia syndrome and osteoporosis, who is here today for a followup visit and for her next Prolia injection. She reports tolerating the Prolia therapy well. No postdosing bone pain or dental issues. She does see a dentist every 6 months. She reports today a flare of pain and stiffness throughout her hands, wrists, knees and ankles. It is both in her joints and the surrounding muscles. She did require a Medrol taper in February 2024 for a similar flare. She reports the steroids do help, but we are currently trying to get her on steroid sparing therapy with Xeljanz. She previously was taking RINVOQ, but developed a headache. She reports the RINVOQ helped tremendously, however. Currently her pain is a 7/10 on a scale with 1-2 hours of morning stiffness. No Raynaud s symptoms, fever or chills, aphthous ulcers, cough, pleurisy, shortness of breath, chest pain or palpitations, GERD, melena or hematochezia, diarrhea or constipation, anorexia or early satiety, dysuria or gross hematuria or bleeding from the nares or gums. She reports that since getting off the RINVOQ her headaches have stopped. She does keep as active as she can on her feet. She has had no falls or fractures since last visit.adina Snow MD [facility] [place] [address], [phone], [facility] 04/14/2024 21:58:26 OBGyn Episode No OBEpisode recorded.
--- OUTSIDE RECORDS SUMMARY | 2024-05-18 16:26 | XMS_ITS ---
Care Plan - [facility] Created on: May 18, 2024 CHRIS HORNER : 1965 Sex: Female Author Organization [facility] Address [address] [place] [address] Phone Care Team Providers Care Market Development Trainer Name Role Phone Unavailable Unavailable Unavailable
--- OUTSIDE RECORDS SUMMARY | 2024-05-18 16:26 | XMS_ITS ---
Author Organization Unknown Address [address] [place] [phone] Phone Care Team Providers Care Coal Grader Name Role Phone CORI GANDARA Attending Unavailable VEL Morris Primary Unavailable Immunization [...] CVX Results ANKLE 3V RIGHT - Completed: 04/15/2023 09:52 LOINC: EXAM DESCRIPTION: ? ? ANKLE 3V RIGHT REASON FOR STUDY: Pain with torn tendons. Fall Duration: 2-16-24 FINDINGS: Three views of the right ankle are submitted for interpretation without comparison. Moderate ankle soft tissue swelling is greatest laterally. Chronic heterotopic ossification is present at the distal tip of the fibula. No acute fracture. Small plantar calcaneal spur. Ankle mortise is intact. Joint spaces are normal. IMPRESSION: ? ? Moderate lateral predominant ankle soft tissue swelling. ? ? No radiographically evident acute fracture. Chronic heterotopic ossification at the distal fibula. THIS IS AN ELECTRONICALLY VERIFIED FINAL REPORT 04/16/2023 8:21 AM - Electronically signed by Myron Woodard M.D. TH: Report ID: [id number] Reading Location: [id number] Social History Type Status Start Date End [...] Diagnosis Start Date Code Code Sys tem Arthralgia of the ankle and/or foot 04/15/2023 84175 [id number] SNOMED-CT Personal Care Team Section Performer Name Performer Role Active Date Inactive SEPIDEH Laguna PCP - Primary care physician 2023-04-15 Imaging Narrative Notes
--- OUTSIDE RECORDS SUMMARY | 2024-05-18 16:26 | XMS_ITS | Clinical Summary ---
Author Organization [facility] Address [facility] [place] [address] Care Team Providers Care Route Sales Delivery Driver Name Role Phone Darrin Loja MD Primary Care Provider [phone] Allergies Active Allergy Reactions Criticality Noted Date Comments Valproic Acid Anaphylaxis High 03/09/2018 Etanercept Swelling High 01/11/2018 Occurred 4 days after first enbrel dose. Occurred 4 days after first enbrel dose. Lamotrigine Unknown 03/09/2018 [place] Anaphylaxis High 03/09/2018 Nitrofurantoin Rash Low 03/09/2018 Penicillin G Rash Medium 11/11/2016 Penicillins Hives,Rash Medium 03/09/2018 Medications metoprolol succinate 100 MG 24 hr tablet Take 1.5 tablets (150 mg total) by mouth daily. 10/12/2017 Active sertraline 50 MG tablet Take 1 tablet (50 mg total) by mouth daily. 10/07/2017 Active TRILEPTAL 600 MG Tab tablet Take 1/2 tablet in the morning and 2 at bedtime. 08/21/2017 Active sertraline 100 MG tablet Take 1 tablet (100 mg total) by mouth daily. 02/15/2018 Active traMADol 50 MG tablet Take 1 tablet (50 mg total) by mouth every 8 (eight) hours as needed. 01/27/2018 Active leflunomide 10 MG Tab Take 1 tablet (10 mg total) by mouth daily. Active Multiple Vitamins-Minera [place] (CENTRUM SILVER) Tab Take 1 tablet by mouth daily. Active morphine CR (MS CONTIN) 15 MG tablet 05/29/2022 Active folic acid (FOLVITE) 1 MG tablet Take 1 tablet (1 mg total) by mouth daily. Active propranolol (INDERAL) 10 MG tablet Take 1 tablet (10 mg total) by mouth 3 (three) times daily as needed (anxiety). Active LORazepam (ATIVAN) 0.5 MG tablet Take 1 tablet (0.5 mg total) by mouth 2 (two) times daily as needed for Anxiety. Active Active Problems Problem Noted Date Diagnosed Date Seronegative rheumatoid arth ritis of multiple sites ([facility]) 01/28/2023 Right upper quadrant abdominal pain 07/04/2020 Hematuria 07/03/2020 Encounter for postoperative care 03/29/2018 Angioedema 03/09/2018 Rheumatoid arthritis without elevated rheumatoid factor ([facility]) 03/09/2018 Overview (03/10/2018): Overview: vectra 37 08/03 R hand u/s 08/03 showed moderate inflammation with doppler but some improvement since previous study Last Assessment & Plan: High cdai. On 20mg mtx weekly. Had [...] for reactions. Labs next. F/u 6 weeks Paresthesias 01/11/2018 Overview (03/10/2018): Last Assessment & Plan: Paresthesias to R hand intermittently. Positive tinel's on exam. Suspect she may have mild CTS. If not improving with more RA tx then will send for nerve studies. Tongue swelling 12/14/2017 Overview (03/10/2018): Last Assessment & Plan: Major complaint today. Tongue swelling, which began [...] alternative options at FU in 3 weeks. Acute right-sided thoracic back pain 08/03/2017 Overview (03/10/2018): Last Assessment & Plan: Continuing with PT Neck pain 08/03/2017 Overview (03/10/2018): Last Assessment & Plan: On gabapentin 400mg TID. Stable at this time. Last Assessment & Plan: early degenerative change in the neck and also degenerative discs at multiple levels in the thoracic spine. Long-term use of high-risk medication 11/25/2016 Overview (03/10/2018): Last Assessment & Plan: Hepatitis neg 11/02 Quant neg 12/03 cxr neg 11/02. Fatigue 11/11/2016 Overview (03/10/2018): Last Assessment & Plan: Will check hepatitis panel. Pain in joint 11/11/2016 Overview (03/10/2018): Last Assessment & Plan: Joint tenderness with questionable synovitis. Will check serologies, xrays and hand/wrist u/s to look for synovitis. Pt seen with Dr. Link. F/u 2 weeks, sooner if needed. Diarrhea 11/13/2011 Hematochezia 11/06/2011 Anxiety Bipolar disorder ([facility]) Depression Esophageal reflux Hypertension Hyperlipidemia Osteopenia Tobacco use disorder Resolved Problems Problem Noted Date Diagnosed Date Resolved Date Lipoma of right shoulder 03/09/201812/2018 Skin lump of arm, right 12/15/201703/19 Overview (03/10/2018): Last Assessment & Plan: 1cm lump developed on the posterior lateral right shoulder. Mobile and tender some. Suspicious for lipoma. Patient has scheduled an appointment with general surgeon for further evaluation. Family History Medical History Relation Comments None Father None Mother Relation Status Comments Father Alive Mother Alive Social History Tobacco Use Types Packs/Day Years Used Date Smoking Tobacco: Every Day Cigarettes Smokeless Tobacco: Never Tobacco Cessation:Ready to Q uit: Not Asked; Counseling Given: Not Answered Alcohol Use Standard Drinks/Week Comments No 0 (1 standard drink = 0.6 oz pur e alcohol) AUDIT-C Answer Date Recorded Frequency of Alcohol Consumption Never 12/25/2017 Average Number of Drinks Not on file 018 Frequency of Binge Drinking Not on file 10/2017 Comments No Sex and Gender Information Value Date Recorded Sex Assigned at Female 03/09/2018 12:13 PM POUCH MAKING MACHINE OPERATOR Legal Sex Female 11:18 PM POUCH MAKING MACHINE OPERATOR Gender Identity Female 03/09/2018 12:13 PM POUCH MAKING MACHINE OPERATOR Sexual Orientation Not on file Last Filed Vital Signs Vital Sign Reading Time Taken Comments Blood Pressure 181/97 05/01/2023 10:29 AM CDT Pulse 79 05/01/2023 10:29 AM CDT Temperature 36.4 C (97.6 F) 05/01/2023 10:29 AM CDT Respiratory Rate 16 05/01/2023 10:29 AM CDT Oxygen Saturation 95% 05/01/2023 10:29 AM CDT Inhaled Oxygen Concentration - - Weight 79.1 kg (174 lb 6.1 oz) 05/01/2023 10:29 AM CDT Height 170.2 cm (5' 7 ) 04/03/2023 7:08 PM POUCH MAKING MACHINE OPERATOR Body Mass Index 27.31 04/03/2023 7:08 PM POUCH MAKING MACHINE OPERATOR Plan of Treatment Health Maintenance Due Date Last Done Comments Colorectal Cancer Screening Colonoscopy (10 Years) 1965 Annual Physical 07/13/1970 Pneumococcal Vaccine: Pediatrics (0 to 5 Years) and At-Risk Patients (6 to 64 Years) (1 of 2 - PCV) 07/13/1973 DTaP, Tdap and Td Vaccines (1 - Tdap) 07/13/1986 Hepatitis B Vaccines (1 of 3 - 19+ 3-dose series) 07/13/1986 Mammogram Screening 2007 Zoster Vaccines (1 of 2) 07/13/2017 COVID-19 Vaccine (5 - season) 2023 01/14/2022, 10/08/2020, 04/27/2020, Additional history exists Influenza Adult (#1) 2023 01/26/2023, 12/03/2021, 11/27/2020, Additional history exists Colorectal Cancer Screening FIT/FOBT (1 Year) Discontinued 07/04/2020 Hepatitis C Completed 07/04/2020 Meningococcal B Vaccine Aged Out No l onger eligible based on patient's age to complete this topic Meningococcal Vaccine Aged Out No rony maren eligible based on patient's age to complete this topic RSV Immunizations Under 20 Months Aged Out No longer eligible based on patient's age to complete this topic Procedures Procedure Name Priority Date/Time Associated Diagnosis Comments OCCULT BLOOD, FECES Routine 07/04/2020 1 :20 PM CDT HEPATITIS PANEL,ACUTE Routine 07/04/2020 5:27 AM CDT from Last 3 Months or Most Recently Relevant to Health Maintenance Results * (ABNORMAL) OCCULT BLOOD, FECES (07/04/2020 1:20 PM CDT) OCCULT BLOOD FECAL POSITIVE(A ) NEGATIVE 07/04/2020 3:36 PM CDT [facility] Comment:1+ STOOL SPECIMEN / Unknown 07/04/2020 1:20 PM CDT Birgit [facility] BODY FLUIDS AND STOOLS ORD ERABLES Final Result [facility] [address] [place] [address], * HEPATITIS PANEL,ACUTE (07/04/2020 5:27 AM CDT) HEPATITIS B SURFACE AG NON-REACT AYDEE NON-REACT AYDEE 07/05/2020 6:41 PM CDT [facility] Comment:HBsAg NOT DETECTED. HEP B CORE IGM NON-REACT AYDEE NON-REACT AYDEE 07/05/2020 6:41 PM CDT [facility] Comment: IgM ANTI HBc NOT DETECTED. DOES NOT EXCLUDE THE POSSIBILITY OF EXPOSURE TO OR INFECTION WITH HBV. NO RETEST REQUIRED. HIGH DOSES OF BIOTIN MAY INTERFERE WITH THIS TEST RESULT. CORRELATION TO CLINICAL HISTORY AND PRESENTATION RECOMMENDED. HAV IGM NON-REACT AYDEE NON-REACT AYDEE 07/05/2020 6:41 PM CDT [facility] Comment: IgM ANTI HAV NOT DETECTED. DOES NOT EXCLUDE THE POSSIBILITY OF EXPOSURE TO OR INFECTION WITH HAV. LEVELS OF IgM ANTI HAV MAY BE BELOW THE CUTOFF IN EARLY INFECTION. HEPATITIS C AB NON-REACT AYDEE NON-REACT AYDEE 07/05/2020 6:41 PM CDT [facility] Comment: ANTIBODIES TO HCV NOT DETECTED. DOES NOT EXCLUDE THE POSSIBILITY OF EXPOSURE TO HCV. 07/04/2020 5:27 AM CDT us Birgit [facility] Final Resu lt [facility] [address] [place] [address], [id number] from Last 3 Months or Most Recently Relevant to Health Maintenance Insurance [employer] Advance Directives * Full Code (Latest Code Status on File) Date Activated Date Inactivated Comments 07/03/2020 8:28 PM 07/04/2020 7:15 PM Care Teams Route Sales Delivery Driver Relationship Specialty Start Date End Date Darrin Loja MD [address] [place] [phone] PCP - General FAMILY PRACTICE 06/05/20
--- OUTSIDE RECORDS SUMMARY | 2024-05-18 16:26 | XMS_ITS ---
Author Organization Unknown Address [address] [place] [phone] Phone Care Team Providers Care Design Engineering Specialist Name Role Phone CORI KOHLERSSEF Attending Unavailable [...] CVX Results ANKLE 3V RIGHT - Completed: 05/13/2023 09:29 LOINC: EXAM DESCRIPTION: ANKLE 3V RIGHT REASON FOR STUDY: FOLLOW UP FRACTURE PT STILL STATES A LOT OF PAIN AND LROM - LIMITED WEIGHT BEARING Duration: . TECHNIQUE: There are 3 radiographic view(s) of the right ankle . COMPARISON: 04/15/2023. FINDINGS: No acute fracture or dislocation. Talar dome is smooth. Ankle mortise is intact. Small focus heterotopic ossification distal to the fibula as was previously seen. Small plantar calcaneal spur. Small enthesophyte Achilles tendon insertion. IMPRESSION: ? ? No acute fracture. ? ? Small focus heterotopic ossification distal to the fibula as was previously seen. THIS IS AN ELECTRONICALLY VERIFIED FINAL REPORT 05/13/2023 9:28 PM - Electronically signed by Jac Larsen M.D. MJ: KENISHA Report ID: [id number] Reading Location: [place] [address] Social History Type Status Start Date End [...] Diagnosis Start Date Code Code Sys tem 05/13/2023 [id number] SNOMED-CT Personal Care Team Section Performer Name Performer Role Active Date Inactive SEPIDEH Laguna PCP - Primary care physician 2023-04-15 Imaging Narrative Notes
--- OUTSIDE RECORDS SUMMARY | 2024-05-18 16:26 | XMS_ITS | Clinical Summary ---
Author Organization [facility] Address [address] [place] [address] Phone Care Team Providers Care Engine Test Cell Technician Name Role Phone Unavailable Unavailable Unavailable Reason for Visit and Chief Complaint NEW DE ICER EXAM Plan of Treatment No Plan of Treatment Recorded Assessments Includes: Assessments from this encounter No Assessments Recorded Medical Equipment - Implanted Devices Includes: Current Devices No Medical Equipment Recorded Medications Administered Includes: Administered Medications from this encounter No Administered Medications Recorded Results Includes: Results discussed during this encounter No Results Recorded For Specified Dates History of Present Illness Includes: History of Present Illness from this encounter No History of Present Illness Recorded Social History No Social History Recorded - Smoking Status Unknown Medical History Includes: Medical History addressed during this encounter No Medical History Recorded Family History Includes: Family History addressed during this encounter No Family History Recorded Review of Systems Includes: Review of Systems from this encounter No Review of Systems Recorded Mental Status Includes: Mental Status from this encounter No Mental Status Recorded Functional Status Includes: Functional Status from this encounter No Functional Status Recorded Physical Exam Includes: Physical Exam from this encounter No Physical Exam Recorded Clinical Notes Includes: Clinical Notes from this encounter No Clinical Notes Recorded
== END 2024-05-18 15:04 | disposition home or self-care (01) ==
LOC: ANHIMG 15:05
PROVIDERS: PCP Physician Assistant; Visit Provider Obstetrics & Gynecology
DX: Z12.31 Encounter for screening mammogram for malignant neoplasm of breast (principal)
CPT/HCPCS: 77063; 77067